=== PATIENT | female | born 1945 ===

== ENCOUNTER 2016-12-08 11:31 | Emergency (ER) | payer MEDICARE ==
[2016-12-08 12:06] VITALS: BMI 28.7
[2016-12-08 12:43] VITALS: TEMP 97.5
--- NOTE | 2016-12-08 12:48 | C.PDOC ---
History Of Present Illness 71 y/o female presents to ED with c/o cyst on her back "for a long time", started draining and increasingly painful over the last few days. Notes she has had similar in 2 other locations in past few years. She states her tried to open the cyst. Patient also reports few weeks of productive cough, initially productive of whitish sputum, now greenish sputum. Denies fevers, chills, SOB, chest pain, or other associated symptoms. Time Seen by Provider: 12/08/16 12:37 Chief Complaint (Nursing): Abnormal Skin Integrity History Per: Patient History/Exam Limitations: no limitations Onset/Duration Of Symptoms: Days Current Symptoms Are (Timing): Still Present Recent travel outside of the [place]: No Past Medical History Reviewed: Historical Data, Nursing Documentation, Vital Signs Vital Signs: Last Vital Signs Temp 97.5 F L 12/08/16 12:42 Pulse 75 12/08/16 14:43 Resp 18 12/08/16 14:43 BP 124/75 12/08/16 14:43 Pulse Ox 99 12/08/16 14:52 - Medical History PMH: Diverticulitis, HTN Surgical History: Appendectomy (2011), Cholecystectomy (2011) - [facility] Procedures OTHER SKIN & SUBQ I D (10/30/14) Family History: States: Unknown Family Hx - Social History Hx Tobacco Use: Yes Hx Alcohol Use: No Hx Substance Use: No - Immunization History Hx Tetanus Toxoid Vaccination: No Hx Influenza Vaccination: No Hx Pneumococcal Vaccination: No Review Of Systems Except As Marked, All Systems Reviewed And Found Negative. Constitutional: Negative for: Fever, Chills Respiratory: Positive for: Cough, Sputum Gastrointestinal: Negative for: Nausea, Vomiting Skin: Positive for: Other (draining cyst upper back ). Negative for: Rash Neurological: Negative for: Weakness, Numbness Physical Exam - Physical Exam Appears: Non-toxic, No Acute Distress Skin: Warm, Dry Chest: Symmetrical Back: Other (1.0 cm draining sebacious cyst, mid upper back) Extremity: Normal ROM Neurological/Psych: Oriented x3, Normal Speech, Normal Cognition ED Course And Treatment O2 Sat by Pulse Oximetry: 99 (RA) Pulse Ox Interpretation: Normal Disposition Counseled Patient/Family Regarding: Need For Followup - Disposition Referrals: Rosa Isela Alfaro MD [Medical Doctor] - Disposition: HOME/ ROUTINE Disposition Time: 12:46 Condition: GOOD Additional Instructions: Wash daily soap and water Prescriptions: Benzonatate [Tessalon Perles] 1 sgl PO BID PRN #20 sgl PRN Reason: Cough Instructions: Abscess (ED) - Clinical Impression Clinical Impression: Sebaceous cyst - Scribe Statement The provider has reviewed the documentation as recorded by the Marty Smith Provider Attestation: All medical record entries made by the Marty were at my direction and personally dictated by me. I have reviewed the chart and agree that the record accurately reflects my personal performance of the history, physical exam, medical decision making, and the department course for this patient. I have also personally directed, reviewed, and agree with the discharge instructions and disposition.
[2016-12-08] MEDS ORDERED: Lidocaine 2% Inj (20ml) INFIL ONE (13:38)
[2016-12-08] MEDS ORDERED: Lidocaine 2% Inj (20ml) ONE (13:49)
[2016-12-08] MEDS ORDERED: Bacitracin 500 Units/gm Oint Foilpak UD ONE (14:06)
[2016-12-08] MEDS ORDERED: Bacitracin Ointment 30 GM TUBE TOP SCH (14:09)
[2016-12-08 14:45] VITALS: BP 124/75; PULSE 75; RESP 18
[2016-12-08 14:51] VITALS: O2SAT 99
== END 2016-12-08 14:44 | disposition home or self-care (01) ==
LOC: C.ER 11:31
DX: L72.3 Sebaceous cyst (principal)

== ENCOUNTER 2017-01-27 11:03 | Emergency (ER) | payer MEDICARE ==
[2017-01-27 11:03] VITALS: BMI 28.7
[2017-01-27 11:07] VITALS: TEMP 98.4; O2SAT 96
[2017-01-27] MEDS ORDERED: Lidocaine 1% Inj (20ml) INFIL ONE (11:15)
[2017-01-27] MEDS ORDERED: Lidocaine 1% Inj (20ml) ONE (11:17)
--- NOTE | 2017-01-27 11:21 | C.PDOC ---
History Of Present Illness 71 y/o female presents to the ED with complaint of abscess to upper back x1.5 weeks. Pt denies fever, chills or any other complaints. No history of diabetes. pt has had similar abscesses. Time Seen by Provider: 01/27/17 11:10 Chief Complaint (Nursing): Abnormal Skin Integrity History Per: Patient History/Exam Limitations: no limitations Onset/Duration Of Symptoms: Days (10) Current Symptoms Are (Timing): Worse Location Of Injury: Posterior: Back (upper mid back) Quality Of Symptoms: Painful Severity: Moderate Recent travel outside of the [place]: No Past Medical History Reviewed: Historical Data, Nursing Documentation, Vital Signs Vital Signs: Last Vital Signs Temp 98.4 F 01/27/17 11:06 Pulse 71 01/27/17 11:49 Resp 18 01/27/17 11:49 BP 114/79 01/27/17 11:49 Pulse Ox 96 01/27/17 22:36 - Medical History PMH: Diverticulitis, HTN Surgical History: Appendectomy (2011), Cholecystectomy (2011) - [facility] Procedures OTHER SKIN & SUBQ I D (10/30/14) Family History: States: Unknown Family Hx - Social History Hx Tobacco Use: Yes Hx Alcohol Use: No Hx Substance Use: No - Immunization History Hx Tetanus Toxoid Vaccination: No Hx Influenza Vaccination: No Hx Pneumococcal Vaccination: No Review Of Systems Constitutional: Negative for: Fever, Chills Skin: Positive for: Other (1.5 cm swollen area to middle uppper back, black puntate fredi, with fluctuance above, sourrounding erythema) Physical Exam - Physical Exam Appears: Non-toxic, No Acute Distress Skin: Warm, Dry, No Rash, Other (1.5 cm swollen area with punctate black fredi, with surrounding erythema, mild warmth and fluctuance) Head: Atraumatic, Normacephalic Extremity: Normal ROM Extremity: Bilateral: Atraumatic Neurological/Psych: Oriented x3, Normal Speech, Normal Cognition ED Course And Treatment O2 Sat by Pulse Oximetry: 96 (room air) Pulse Ox Interpretation: Normal - Incision & Drainage Of Abscess Anesthesia: Lidocaine 1% Prep Used: Betadine Procedure: Incised W/Scalpel Blade#: (11), Drained Pus (mostly thick cottage cheese like discharge, mild remaining induration), Irrigated Cavity W/Saline Disposition Counseled Patient/Family Regarding: Diagnosis, Need For Followup - Disposition Referrals: Steve Gallagher MD [Non-Staff] - Disposition: HOME/ ROUTINE Disposition Time: 11:42 Condition: IMPROVED Additional Instructions: Aplique compresas calientes al barak varias veces al da; Nina era un quiste infectado; Usted tendr que ser visto por un dermatlogo. Seguimiento con el Dr. Friedman para obtener toribio remisin de dermatologa. Catarina antibiticos segn lo prescrito. Tylenol 650 mg por va oral cada 4-6 horas para el dolor. Regrese a ER para cualquier empeoramiento de los sntomas. Prescriptions: Bacitracin OINT 1 applic TP BID #1 tube Sulfamethoxazole/Trimethoprim [Bactrim DS 800 mg-160 mg] 1 tab PO BID #14 tab Instructions: Cyst (ED) Forms: Gen Discharge Inst Ukrainian Print Language: AFGHAN - Clinical Impression Clinical Impression: Infected cyst of skin - PA / [employer] / Resident Statement MD/DO has reviewed & agrees with the documentation as recorded. - Scribe Statement The provider has reviewed the documentation as recorded by the Marty Fraga All medical record entries made by the Scribe were at my direction and personally dictated by me. I have reviewed the chart and agree that the record accurately reflects my personal performance of the history, physical exam, medical decision making, and the department course for this patient. I have also personally directed, reviewed, and agree with the discharge instructions and disposition.
[2017-01-27 11:49] VITALS: BP 114/79; PULSE 71; RESP 18
== END 2017-01-27 11:52 | disposition home or self-care (01) ==
LOC: C.ER 11:03
DX: L08.9 Local infection of the skin and subcutaneous tissue, unspecified (principal)

== ENCOUNTER 2017-03-08 15:35 | Emergency (ER) | payer MEDICARE ==
[2017-03-08 15:35] VITALS: BMI 28.7
[2017-03-08] MEDS ORDERED: Albuterol-Ipratrop 3 mg / 0.5 (3 ml) UD INH STA ×2 (16:48→18:35)
--- NOTE | 2017-03-08 17:06 | RAD ---
PROCEDURE: CHEST RADIOGRAPH, 1 VIEW HISTORY: SOB COMPARISON: Comparison made with chest radiograph 10/13/2016. FINDINGS: LUNGS: Suspect minor right apical pleural thickening. Lung schreiber are otherwise clear. PLEURA: No pneumothorax or pleural fluid seen. CARDIOVASCULAR: Normal. OSSEOUS STRUCTURES: Minor multilevel degenerative spondylosis of the thoracic spine. . Apparent widening of the left acromioclavicular joint. Clinical correlation recommended. Radiographs of the left clavicle could be performed further evaluation VISUALIZED UPPER ABDOMEN: Normal. OTHER FINDINGS: None. IMPRESSION: No acute consolidation. Apparent widening left acromioclavicular joint of uncertain etiology. Radiographs of the left clavicle could be performed for further evaluation if clinically warranted.
[2017-03-08] MEDS ORDERED: Albuterol-Ipratrop 3 mg / 0.5 (3 ml) UD ONE ×2 (17:22→18:44)
[2017-03-08 17:27] LABS: BASO # 0.1 K/uL (0.0-0.2); EOS # 0.7 K/uL (0.0-0.7); EOS % 8.2 % (0.0-4.0); HEMATOCRIT 40.7 % (34.0-47.0); LYMPH # 2.9 K/uL (1.0-4.3); LYMPH % 34.1 % (20.0-40.0); MEAN CORPUSCULAR HEMOGLOBIN 29.2 pg (27.0-31.0); MEAN CORPUSCULAR HGB CONC 33.2 g/dL (33.0-37.0); MEAN PLATELET VOLUME 8.1 fL (7.2-11.7); MONO # 0.7 K/uL (0.0-0.8); MONO % 7.6 % (0.0-10.0); NRBC % 0.1 % (0.0-2.0); RED CELL DISTRIBUTION WIDTH 14.2 % (11.5-14.5); WHITE BLOOD COUNT 8.6 K/uL (4.8-10.8)
[2017-03-08 17:36] LABS: CHLORIDE 103 mmol/L (98-107); SODIUM 138 mmol/L (132-148)
[2017-03-08 17:37] LABS: POTASSIUM 4.3 mmol/L (3.6-5.2)
[2017-03-08 17:39] LABS: ALB/GLOB RATIO 1.2 (1.0-2.1); ALKALINE PHOSPHATASE 73 U/L (38-126); ALT/SGPT 28 U/L (9-52); AST/SGOT 23 U/L (14-36); BILIRUBIN,TOTAL 0.5 mg/dL (0.2-1.3); BLOOD UREA NITROGEN 11 mg/dL (7-17); CARBON DIOXIDE 25 mmol/L (22-30); GFR AFRICAN-AMERICAN > 60; GLUCOSE,RANDOM 93 mg/dL (65-105); TOTAL PROTEIN 7.3 g/dL (6.3-8.3)
[2017-03-08 17:40] LABS: CALCIUM 8.9 mg/dl (8.6-10.4)
[2017-03-08 17:51] LABS: PARTIAL THROMBOPLASTIN TIME 33 SECONDS (21-34)
--- NOTE | 2017-03-08 18:26 | C.PDOC ---
History Of Present Illness A 72 year old female, whose past medical history includes hypertension and diverticulitis, presents to the emergency department for a dry no -productive cough, which began 2 weeks ago. The patient states she took tessalon perles and didn't see any improvements. The patient denies any fever, headaches, chest pain , or any other complaints at this time. Time Seen by Provider: 03/08/17 16:40 Chief Complaint (Nursing): Cough, Cold, Congestion History Per: Patient History/Exam Limitations: no limitations Onset/Duration Of Symptoms: Days (x 14 days ) Current Symptoms Are (Timing): Still Present Associated Symptoms: denies: Fever Past Medical History Vital Signs: Last Vital Signs Temp 98.3 F 03/08/17 15:49 Pulse 82 03/08/17 15:49 Resp 18 03/08/17 15:49 BP 113/70 03/08/17 15:49 Pulse Ox 98 03/08/17 18:35 - Medical History PMH: Diverticulitis, HTN Surgical History: Appendectomy (2011), Back Surgery, Cholecystectomy (2011) - [facility] Procedures OTHER SKIN & SUBQ I D (10/30/14) Family History: States: Unknown Family Hx - Social History Hx Tobacco Use: Yes Hx Alcohol Use: No Hx Substance Use: No - Immunization History Hx Tetanus Toxoid Vaccination: No Hx Influenza Vaccination: No Hx Pneumococcal Vaccination: No Review Of Systems Except As Marked, All Systems Reviewed And Found Negative. Constitutional: Negative for: Fever Cardiovascular: Negative for: Chest Pain Neurological: Negative for: Headache Physical Exam - Physical Exam Appears: Well, No Acute Distress Skin: Normal Color, Warm, Dry Head: Atraumatic, Normacephalic Eye(s): bilateral: Normal Inspection, PERRL, EOMI Nose: Normal Throat: Normal Neck: Normal Cardiovascular: Rhythm Regular Respiratory: Normal Breath Sounds Gastrointestinal/Abdominal: Normal Exam Back: Normal Inspection Extremity: Normal ROM ED Course And Treatment - Laboratory Results Result Diagrams: 03/08/17 17:20 03/08/17 17:20 Lab Interpretation: Normal (d-dimer neg.) ECG: Interpreted By Me ECG Rhythm: Sinus Rhythm ECG Interpretation: Normal Rate From EC O2 Sat by Pulse Oximetry: 98 Pulse Ox Interpretation: Normal - Radiology CXR: Interpreted by Me CXR Interpretation: Yes: No Acute Disease Progress Note: maame guy Reevaluation Time: 18:25 Reassessment Condition: Improved Critical Care Time - Critical Care Note Total Time (in mins): 90 Documented critical care: time excludes all time spent performing seperately billable procedures. Medical Decision Making Medical Decision Making: Plan: -- EKG -- Albuterol, Pepcid, prednisone -- Nebulizer -- Urinalysis Progress Notes: mild bronchial irritation/dry cough no pna/pnx, no s/s of PE improved with steroids/nebs, ok for same @ home. Disposition Doctor Will See Patient In The: Office Counseled Patient/Family Regarding: Studies Performed, Diagnosis - Disposition Referrals: Steve Gallagher MD [Non-Staff] - Disposition: HOME/ ROUTINE Disposition Time: 18:25 Condition: GOOD Additional Instructions: feli predisona 20 diarios por 4 chavez mas- para bajer inflammacion' de los bronchios. Albuterol bomba: 2 puffs cada 4 horas mio el kaela. Y si se despierta en la noche. Siempre usa con el Aerochamber Spacer (tubo plastico) para que funccion'a mejor la bomba Pepcid 20 mg en la noche para prevenir irritacion' del estomago debido al prednisona. Sigue con Dr. Friedman en 2 chavez para re-evaluarse olga necessario. Prescriptions: Albuterol HFA [Ventolin HFA 90 mcg/actuation (8 g)] 200 puff IH Q4H PRN #2 puff PRN Reason: Cough Prednisone [Deltasone] 20 mg PO DAILY #4 tablet Spacer, Inhalation [Aerochamber] 1 inh IH QID #1 dev Instructions: Chronic Cough (ED) Forms: [employer] (Northern Irish) Print Language: FILIPINO - Clinical Impression Clinical Impression: Cough in adult - Scribe Statement The provider has reviewed the documentation as recorded by the Scribe Renetta Bunch All medical record entries made by the Scribe were at my direction and personally dictated by me. I have reviewed the chart and agree that the record accurately reflects my personal performance of the history, physical exam, medical decision making, and the department course for this patient. I have also personally directed, reviewed, and agree with the discharge instructions and disposition.
[2017-03-08 19:33] VITALS: BP 146/74; PULSE 82; RESP 18; TEMP 98.2; O2SAT 98
--- NOTE | 2017-03-10 11:44 | CARD ---
APPROVED REPORT EKG Measurement Heart [id number] <Conclusion> Normal sinus rhythm Normal ECG
== END 2017-03-08 19:29 | disposition home or self-care (01) ==
LOC: C.ER 15:35
DX: R05 Cough (principal); I10 Essential (primary) hypertension
CPT/HCPCS: 71010; 80053; 83880; 84484; 85025; 85378; 85610; 85730; 87040; 93005; 94150; 94640; 96374; 99285; J2930

== ENCOUNTER 2017-10-12 10:28 | Emergency (ER) | payer MEDICARE ==
[2017-10-12 10:28] VITALS: BMI 28.7
[2017-10-12 10:46] VITALS: BP 138/70; PULSE 82; RESP 18; TEMP 98.4; O2SAT 97
--- NOTE | 2017-10-12 11:52 | C.PDOC ---
Time Seen by Provider: 10/12/17 10:54 Chief Complaint (Nursing): Cough, Cold, Congestion History Per: Patient Onset/Duration Of Symptoms: Days (about 1 week) Current Symptoms Are (Timing): Still Present Associated Symptoms: Sore Throat, Cough, Sputum, Myalgias, Nasal Congestion Severity: Moderate Additional History Per: Prior Records Past Medical History Reviewed: Historical Data, Nursing Documentation, Vital Signs Vital Signs: Last Vital Signs Temp 98.4 F 10/12/17 10:44 Pulse 82 10/12/17 10:44 Resp 18 10/12/17 10:44 BP 138/70 10/12/17 10:44 Pulse Ox 97 10/12/17 10:44 - Medical History PMH: Diverticulitis, HTN Surgical History: Appendectomy (2011), Back Surgery, Cholecystectomy (2011) - [facility] Procedures OTHER SKIN & SUBQ I D (10/30/14) Family History: States: Unknown Family Hx - Social History Hx Tobacco Use: Yes Hx Alcohol Use: No Hx Substance Use: No - Immunization History Hx Tetanus Toxoid Vaccination: No Hx Influenza Vaccination: No Hx Pneumococcal Vaccination: No Review Of Systems Except As Marked, All Systems Reviewed And Found Negative. Constitutional: Positive for: Fever (subjective) ENT: Positive for: Nose Congestion, Throat Pain. Negative for: Ear Pain Cardiovascular: Negative for: Chest Pain Respiratory: Positive for: Cough, Sputum. Negative for: Shortness of Breath, Hemoptysis Gastrointestinal: Negative for: Vomiting, Abdominal Pain, Diarrhea Genitourinary: Negative for: Dysuria Musculoskeletal: Negative for: Neck Pain, Back Pain Skin: Negative for: Rash Neurological: Negative for: Weakness, Numbness, Seizures, Altered Mental Status Physical Exam - Physical Exam Appears: Non-toxic, No Acute Distress Skin: Normal Color, Warm, Dry, No Rash Head: Atraumatic, Normacephalic Eye(s): bilateral: Normal Inspection, PERRL, EOMI Neck: Normal ROM, Supple Cardiovascular: Rhythm Regular Respiratory: Normal Breath Sounds, No Accessory Muscle Use Gastrointestinal/Abdominal: Soft, No Tenderness Back: No CVA Tenderness Extremity: Normal ROM, No Pedal Edema Neurological/Psych: Oriented x3, Normal Motor, Normal Sensation ED Course And Treatment O2 Sat by Pulse Oximetry: 97 Pulse Ox Interpretation: Normal - Radiology CXR: Interpreted by Me, Viewed By Me CXR Interpretation: Yes: No Acute Disease Disposition Counseled Patient/Family Regarding: Studies Performed, Diagnosis, Need For Followup, Rx Given, Smoking Cessation - Disposition Referrals: Steve Gallagher MD [Non-Staff] - Disposition: HOME/ ROUTINE Disposition Time: 11:51 Condition: STABLE Additional Instructions: Stop smoking. Follow up with your doctor this week for further evaluation and treatment. Return to the ER if you develop shortness of breath, chest pain, worsening of symptoms or if you have any other concerns. Prescriptions: Acetaminophen [Tylenol Extra Strength] 2 tab PO Q6 PRN #30 tablet PRN Reason: Pain, Moderate (4-7) Azithromycin [Zithromax] 1 dose PO DAILY #1 pkt Benzonatate 200 mg PO TID PRN #15 capsule PRN Reason: Cough Instructions: Acute Bronchitis, Adult (DC) Forms: [employer] (Croatian) Print Language: PORTUGUESE - Clinical Impression Clinical Impression: Acute bronchitis
--- NOTE | 2017-10-12 12:03 | RAD ---
HISTORY: Cough COMPARISON: 03/08/2017 TECHNIQUE: Chest PA and lateral FINDINGS: LUNGS: No active pulmonary disease. PLEURA: No significant pleural effusion identified. No pneumothorax apparent. CARDIOVASCULAR: Normal. OSSEOUS STRUCTURES: No significant abnormalities. VISUALIZED UPPER ABDOMEN: Normal. OTHER FINDINGS: None. IMPRESSION: No active disease. No significant interval change compared to the prior examination(s).
== END 2017-10-12 11:59 | disposition home or self-care (01) ==
LOC: C.ER 10:28
DX: J20.9 Acute bronchitis, unspecified (principal)

== ENCOUNTER 2018-01-05 21:44 | Emergency (ER) | payer MEDICARE ==
[2018-01-05 21:44] VITALS: BMI 28.7
[2018-01-05 21:56] VITALS: O2SAT 98
--- NOTE | 2018-01-05 23:30 | C.PDOC ---
History Of Present Illness 72 y/o female presents to the ED complaining of nasal congestion, body aches, subjective fever, and cough, since yesterday. Reports taking Tylenol at home with minimal relief. Otherwise patient denies any chest pain, SOB, nausea, vomiting, headache, or dizziness. States she had a similar episode of the same symptoms last year, and was treated for bronchitis at that time. (Zoila Pierce) History Per: Patient History/Exam Limitations: no limitations Onset/Duration Of Symptoms: Days Current Symptoms Are (Timing): Still Present Time Seen by Provider: 01/05/18 22:03 Chief Complaint (Nursing): Cough, Cold, Congestion Past Medical History Reviewed: Historical Data, Nursing Documentation, Vital Signs - Medical History PMH: Diverticulitis, HTN, Hypercholesterolemia Surgical History: Appendectomy (2011), Back Surgery, Cholecystectomy (2011) Family History: States: Unknown Family Hx - Social History Hx Tobacco Use: Yes Hx Alcohol Use: No Hx Substance Use: No - Immunization History Hx Tetanus Toxoid Vaccination: No Hx Influenza Vaccination: No Hx Pneumococcal Vaccination: No Vital Signs: Last Vital Signs Temp 98.1 F 01/05/18 23:37 Pulse 70 01/05/18 23:37 Resp 16 01/05/18 23:37 BP 135/79 01/05/18 23:37 Pulse Ox 98 01/06/18 00:27 - [facility] Procedures OTHER SKIN & SUBQ I D (10/30/14) Review Of Systems Constitutional: Positive for: Fever, Other (bodyaches) ENT: Positive for: Nose Congestion Cardiovascular: Negative for: Chest Pain Respiratory: Positive for: Cough. Negative for: Shortness of Breath Gastrointestinal: Negative for: Nausea, Vomiting Neurological: Negative for: Headache, Dizziness Physical Exam - Physical Exam Appears: Well, Non-toxic, No Acute Distress Skin: Normal Color, Warm, Dry Head: Atraumatic, Normacephalic Eye(s): bilateral: Normal Inspection, EOMI Nose: Discharge (Nasal congestion noted) Oral Mucosa: Moist Neck: Normal ROM, Supple Chest: Symmetrical Cardiovascular: Rhythm Regular, No Murmur Respiratory: Normal Breath Sounds, No Rales, No Rhonchi, No Wheezing, Other ( speaking in full sentences) Extremity: Bilateral: Atraumatic, Normal Color And Temperature, Normal ROM Neurological/Psych: Oriented x3, Normal Speech, Other (No focal deficits) ED Course And Treatment O2 Sat by Pulse Oximetry: 98 (RA) Pulse Ox Interpretation: Normal - Radiology CXR: Interpreted by Me (and discussed with ED attending) CXR Interpretation: Yes: No Acute Disease. No: Infiltrates Progress Note: CXR obtained, showing no acute disease. Patient treated with PO Motrin and Zithromax. Flu swab sent. Labs reviewed, negative flu. On reevaluation is resting comfortably, tolerating PO, and remains afebrile at this time. Clinical signs and symptoms are not suggestive of sepsis, meningitis , UTI, pneumonia, intra-abdominal pathology, or cellulitis. Case discussed with Dr. Yang, who agrees with management and plan to discharge home on zithro. Patient will be discharged home, and instructed to follow up with his/ her physician in 1-2 days without fail. Prescriptions provided for Zithromax and cough medication. Patient was instructed to return for any worsening symptoms, persistent fever, neck pain, SOB, abdominal pain, or vomiting. Disposition Counseled Patient/Family Regarding: Studies Performed, Diagnosis, Need For Followup, Rx Given - Disposition Disposition Time: 23:23 - POA Present On Arrival: None - Disposition Disposition: HOME/ ROUTINE Condition: STABLE Additional Instructions: Vaya a burk mdico o la clnica en 2-5 rodriguez sin falta, para mas evaluacin. [place] los medicamentos olga indicado. Volver a la bismark de emergencia en cualquier momento si los sntomas persisten o empeoran. 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 - Scribe Statement The provider has reviewed the documentation as recorded by the Scribe (Salina Paiz) - Scribe Statement All medical record entries made by the Scribe were at my direction and personally dictated by me. I have reviewed the chart and agree that the record accurately reflects my personal performance of the history, physical exam, medical decision making, and the department course for this patient. I have also personally directed, reviewed, and agree with the discharge instructions and disposition. (Zoila Pierce)
[2018-01-05 23:39] VITALS: BP 135/79; PULSE 70; RESP 16; TEMP 98.1
--- NOTE | 2018-01-06 11:37 | RAD ---
HISTORY: COMPARISON: 10/12/2017. TECHNIQUE: Chest PA and lateral FINDINGS: LINES AND TUBES: None. LUNG AND PLEURA: The lungs are well inflated and clear. No pleural effusion or pneumothorax. HEART AND MEDIASTINUM: The heart is not enlarged. The hilar and mediastinal contours are within normal limits. SKELETAL STRUCTURES: The bony structures are within normal limits for the patient's age. VISUALIZED UPPER ABDOMEN: Normal. OTHER FINDINGS: None. IMPRESSION: No active pulmonary disease.
== END 2018-01-05 23:45 | disposition home or self-care (01) ==
LOC: C.ER 21:44
DX: B34.9 Viral infection, unspecified (principal)

== ENCOUNTER 2018-01-18 08:07 | Inpatient (IN) | payer MEDICARE ==
[2018-01-18 08:08] VITALS: BMI 28.7
[2018-01-18 09:33] LABS: BASO # 0.1 K/uL (0.0-0.2); BASO % 0.5 % (0.0-2.0); EOS # 0.4 K/uL (0.0-0.7); EOS % 2.4 % (0.0-4.0); HEMOGLOBIN 13.3 g/dL (11.0-16.0); LYMPH # 1.4 K/uL (1.0-4.3); MEAN CELL VOLUME 86.9 fL (81.0-99.0); MEAN CORPUSCULAR HEMOGLOBIN 29.1 pg (27.0-31.0); MEAN CORPUSCULAR HGB CONC 33.5 g/dL (33.0-37.0); MEAN PLATELET VOLUME 7.5 fL (7.2-11.7); MONO # 1.3 K/uL (0.0-0.8); MONO % 9.2 % (0.0-10.0); NEUT # 11.3 K/uL (1.8-7.0); NEUT % 77.9 % (50.0-75.0); NRBC % 0.1 % (0.0-2.0); RBC 4.57 Mil/uL (3.80-5.20); RED CELL DISTRIBUTION WIDTH 13.5 % (11.5-14.5)
[2018-01-18 09:37] LABS: WHITE BLOOD COUNT 14.5 K/uL (4.8-10.8)
[2018-01-18 09:55] LABS: ALB/GLOB RATIO 1.3 (1.0-2.1); ALBUMIN 4.2 g/dL (3.5-5.0); ALT/SGPT 27 U/L (9-52); AST/SGOT 20 U/L (14-36); BLOOD UREA NITROGEN 8 mg/dL (7-17); CALCIUM 8.9 mg/dl (8.6-10.4); GFR AFRICAN-AMERICAN > 60; GFR NON-AFRICAN AMERICAN > 60
[2018-01-18 10:06] LABS: B-TYPE NATRIURETIC PEPTIDE 134 pg/mL (0-900)
--- NOTE | 2018-01-18 10:12 | RAD ---
Date of service: 01/18/2018 HISTORY: chest pain COMPARISON: Chest radiograph dated 01/05/2018 TECHNIQUE: Chest PA and lateral FINDINGS: LUNGS: No active pulmonary disease. PLEURA: No significant pleural effusion identified. No pneumothorax apparent. CARDIOVASCULAR: Sclerotic aortic calcifications. Cardiomediastinal silhouette within normal. OSSEOUS STRUCTURES: Unchanged. VISUALIZED UPPER ABDOMEN: Normal. OTHER FINDINGS: None. IMPRESSION: No active disease.
--- NOTE | 2018-01-18 11:04 | C.PDOC ---
History Of Present Illness 72-year-old female, presents to the emergency department with complaints of one day duration of body aches, associated with productive cough with clear phlegm. Patient denies nausea/vomiting, diarrhea, urinary symptoms. Patient is not taking any medications for symptoms. Time Seen by Provider: 01/18/18 08:33 Chief Complaint (Nursing): Fever History Per: Patient History/Exam Limitations: no limitations Current Symptoms Are (Timing): Still Present Past Medical History Reviewed: Historical Data, Nursing Documentation, Vital Signs Vital Signs: Last Vital Signs Temp 98.3 F 01/18/18 12:01 Pulse 84 01/18/18 12:01 Resp 18 01/18/18 12:01 BP 120/79 01/18/18 12:01 Pulse Ox 97 01/18/18 12:01 - Medical History PMH: Diverticulitis, HTN, Hypercholesterolemia Surgical History: Appendectomy, Back Surgery, Cholecystectomy - [facility] Procedures OTHER SKIN & SUBQ I D (10/30/14) Family History: States: No Known Family Hx - Social History Hx Tobacco Use: Yes Hx Alcohol Use: No Hx Substance Use: No - Immunization History Hx Tetanus Toxoid Vaccination: No Hx Influenza Vaccination: No Hx Pneumococcal Vaccination: No Review Of Systems Constitutional: Positive for: Fever, Malaise ENT: Negative for: Ear Pain, Throat Pain Cardiovascular: Negative for: Chest Pain, Palpitations Respiratory: Positive for: Cough, Sputum. Negative for: Shortness of Breath Gastrointestinal: Negative for: Nausea, Vomiting Musculoskeletal: Negative for: Back Pain Skin: Negative for: Rash Neurological: Negative for: Weakness, Numbness, Headache, Dizziness Physical Exam - Physical Exam Appears: Non-toxic, No Acute Distress Skin: Normal Color, Warm, Dry, No Rash Head: Atraumatic, Normacephalic Eye(s): bilateral: Normal Inspection Nose: Normal Oral Mucosa: Moist Lips: Normal Appearing Neck: Normal ROM Chest: Symmetrical Cardiovascular: Rhythm Regular, No Murmur Respiratory: Normal Breath Sounds, No Accessory Muscle Use, No Wheezing Gastrointestinal/Abdominal: Soft, No Tenderness Extremity: Normal ROM, No Deformity, No Swelling Neurological/Psych: Oriented x3, Normal Speech ED Course And Treatment - Laboratory Results Result Diagrams: 01/18/18 09:24 01/18/18 09:24 ECG: Interpreted By Me, Viewed By Me ECG Rhythm: Sinus Rhythm ECG Interpretation: No Acute Changes Rate From EC O2 Sat by Pulse Oximetry: 97 (RA) Pulse Ox Interpretation: Normal Medical Decision Making Medical Decision Making: discussed with oncall physician and will admit to medical surgical floor. Disposition Discussed With : Michael Cervnates Doctor Will See Patient In The: Hospital Counseled Patient/Family Regarding: Studies Performed, Diagnosis - Disposition Disposition: HOSPITALIZED Disposition Time: 12:07 Condition: FAIR Forms: [facility] (Dominican) - Clinical Impression Clinical Impression: Pyelonephritis - Scribe Statement The provider has reviewed the documentation as recorded by the Scribe (Panfilo Sutton) All medical record entries made by the Scribe were at my direction and personally dictated by me. I have reviewed the chart and agree that the record accurately reflects my personal performance of the history, physical exam, medical decision making, and the department course for this patient. I have also personally directed, reviewed, and agree with the discharge instructions and disposition.
[2018-01-18 11:09] LABS: SQUAMOUS EPITHIAL 4 /hpf (0-5); URINE BACTERIA MOD (<OCC); URINE BILIRUBIN NEGATIVE (NEGATIVE); URINE BLOOD 2+ (NEGATIVE); URINE CLARITY Hazy (Clear); URINE COLOR Yellow (YELLOW); URINE GLUCOSE (UA) NORMAL (Normal); URINE LEUKOCYTE ESTERASE 3+ Leu/uL (Negative); URINE PROTEIN 1+ mg/dL (NEGATIVE); URINE UROBILINOGEN NORMAL mg/dL (0.2-1.0)
[2018-01-18] MEDS ORDERED: cefTRIAXone IV 1 gm in Dextros 50 ML IVPB ONE (11:36)
[2018-01-18] MEDS: Sodium Chloride 0.9% 1,000 ML IV SCH (15:35)
--- NOTE | 2018-01-18 15:59 | CP.PCM.PN ---
Subjective - Date & Time of Evaluation Date of Evaluation: 01/18/18 Time of Evaluation: 15:35 - Subjective Subjective: Paged to check on patient admitted for pyleonephritis. Pt vitals accessed at Temp 102.8F, HR 119, BP 132/64 O2 Sat 96%. Pt A&O X3 and stated she was cold. Denied chest pain & difficulty breathing. PT had blood cultures and urine cultures obtained in ED. Pt given Rocephin for antimicrobial coverage. Reviewed chart & stat tylenol 650 mg PO once ordered, with Ice packs via direct communication with nurse. Disccused with attending & nurse and informed nurse to call pt admitting provider for further instructions. Objective - Vital Signs/Intake and Output Vital Signs (last 24 hours): Temp Pulse Resp BP Pulse Ox 102.8 F H 90 22 120/72 98 01/18/18 15:29 01/18/18 14:50 01/18/18 14:50 01/18/18 14:50 01/18/18 14:30 - Medications Medications: Current Medications Sodium Chloride (Sodium Chloride 0.9%) 1,000 mls @ 100 mls/hr IV .Q10H QUE Ceftriaxone Sodium 1 gm/ (Sodium Chloride) 100 mls @ 100 mls/hr IVPB DAILY QUE PRN Reason: Protocol Losartan Potassium (Cozaar) 100 mg PO DAILY [facility] Rosuvastatin Calcium (Crestor) 20 mg PO HS QUE - Labs Labs: 01/18/18 09:24 01/18/18 09:24
--- NOTE | 2018-01-18 17:36 | US ---
Date of service: 01/18/2018 PROCEDURE: Ultrasound of the Kidneys HISTORY: r/o pyelonephritis COMPARISON: Correlations made CT scan of the abdomen pelvis dated 05/19/2015. TECHNIQUE: Sonogram of the kidneys. FINDINGS: RIGHT KIDNEY: Measures: 9.9 x 3.8 x 5.0 cm. Nonobstructive midpole calculus measuring 4 mm. Normal in size, contour and echogenicity. No solid mass lesion or hydronephrosis visualized. LEFT KIDNEY: Measures: 10.8 x 5.1 x 4.9 cm. Nonobstructive calculus measuring 4 mm. Normal in size, contour and echogenicity. No solid mass lesion or hydronephrosis visualized. OTHER FINDINGS: Prevoid urinary bladder volume measures 222.2 cc. No significant postvoid residual. Left ureteral jet visualized. Right ureteral jet not seen. IMPRESSION: Bilateral nonobstructive nephrolithiasis. No significant postvoid residual volume.
[2018-01-18] MEDS ORDERED: Oxycodone/Acetaminophen 5/325 mg Tab PO ONE (18:30)
--- NOTE | 2018-01-18 19:59 | CP.PCM.PN ---
Subjective - Date & Time of Evaluation Date of Evaluation: 01/18/18 Time of Evaluation: 19:30 - Subjective Subjective: Patient is seen and examined at bedside. H&P dictated #[id number] Objective - Vital Signs/Intake and Output Vital Signs (last 24 hours): Temp Pulse Resp BP Pulse Ox 102.8 F H 102 H 20 132/64 96 01/18/18 15:29 01/18/18 15:25 01/18/18 15:25 01/18/18 15:25 01/18/18 15:25 - Medications Medications: Current Medications Acetaminophen (Tylenol 325mg Tab) 650 mg PO Q6 PRN PRN Reason: Fever >100.4 F Sodium Chloride (Sodium Chloride 0.9%) 1,000 mls @ 100 mls/hr IV .Q10H [facility] Last Admin: 01/18/18 15:35 Dose: 100 mls/hr Ceftriaxone Sodium 1 gm/ (Sodium Chloride) 100 mls @ 100 mls/hr IVPB DAILY QUE PRN Reason: Protocol Losartan Potassium (Cozaar) 100 mg PO DAILY QUE Pneumococcal Polyvalent Vaccine (Pneumovax 23 Vaccine) 0.5 ml IM .ONCE ONE Stop: 01/20/18 10:01 Rosuvastatin Calcium (Crestor) 20 mg PO HS QUE - Labs Labs: 01/18/18 09:24 01/18/18 09:24
[2018-01-19 07:49] LABS: BASO # 0.1 K/uL (0.0-0.2); BASO % 0.4 % (0.0-2.0); EOS # 0.2 K/uL (0.0-0.7); HEMOGLOBIN 12.7 g/dL (11.0-16.0); LYMPH # 1.9 K/uL (1.0-4.3); LYMPH % 11.7 % (20.0-40.0); MEAN CELL VOLUME 87.5 fL (81.0-99.0); MEAN CORPUSCULAR HGB CONC 34.3 g/dL (33.0-37.0); MONO # 1.5 K/uL (0.0-0.8); MONO % 9.4 % (0.0-10.0); NEUT # 12.6 K/uL (1.8-7.0); NEUT % 77.5 % (50.0-75.0); RBC 4.24 Mil/uL (3.80-5.20); RED CELL DISTRIBUTION WIDTH 13.9 % (11.5-14.5); WHITE BLOOD COUNT 16.2 K/uL (4.8-10.8)
[2018-01-19 08:00] LABS: ALB/GLOB RATIO 1.2 (1.0-2.1); ALBUMIN 3.6 g/dL (3.5-5.0); ALT/SGPT 25 U/L (9-52); AST/SGOT 13 U/L (14-36); BLOOD UREA NITROGEN 8 mg/dL (7-17); CALCIUM 8.2 mg/dl (8.6-10.4); GFR AFRICAN-AMERICAN > 60; GFR NON-AFRICAN AMERICAN > 60; HDL CHOLESTEROL 34 mg/dL (30-70)
[2018-01-19 08:09] LABS: LDL CHOLESTEROL 56 mg/dL (0-129)
[2018-01-19] MEDS: Enoxaparin 40 mg Syringe SC SCH (09:26)
--- NOTE | 2018-01-19 10:11 | CP.PCM.PN ---
Subjective - Date & Time of Evaluation Date of Evaluation: 01/19/18 Time of Evaluation: 09:30 - Subjective Subjective: Progress note dictated #[id number] Objective - Vital Signs/Intake and Output Vital Signs (last 24 hours): Temp Pulse Resp BP Pulse Ox 99.6 F 90 20 121/64 95 01/19/18 07:00 01/19/18 07:00 01/19/18 07:00 01/19/18 07:00 01/19/18 07:00 Intake and Output: 01/19/18 01/19/18 06:59 18:59 Intake Total 1600 Output Total 0 Balance 1600 - Medications Medications: Current Medications Acetaminophen (Tylenol 325mg Tab) 650 mg PO Q6 PRN PRN Reason: Fever >100.4 F Enoxaparin Sodium (Lovenox) 40 mg SC DAILY [facility] Last Admin: 01/19/18 09:26 Dose: 40 mg Sodium Chloride (Sodium Chloride 0.9%) 1,000 mls @ 100 mls/hr IV .Q10H [facility] Last Admin: 01/18/18 15:35 Dose: 100 mls/hr Ceftriaxone Sodium 1 gm/ (Sodium Chloride) 100 mls @ 100 mls/hr IVPB DAILY QUE PRN Reason: Protocol Losartan Potassium (Cozaar) 100 mg PO DAILY [facility] Last Admin: 01/19/18 09:26 Dose: 100 mg Pneumococcal Polyvalent Vaccine (Pneumovax 23 Vaccine) 0.5 ml IM .ONCE ONE Stop: 01/20/18 10:01 Rosuvastatin Calcium (Crestor) 20 mg PO [facility] Last Admin: 01/18/18 21:54 Dose: 20 mg - Labs Labs: 01/19/18 07:30 01/19/18 07:30
--- NOTE | 2018-01-19 10:20 | HP ---
CHIEF COMPLAINT: Fever with chills and rigors, joint pains and generalized body aches since last night. HISTORY OF PRESENT ILLNESS: Ms. Story is a 72-year-old female with past medical history of hypertension, hyperlipidemia, who has been following up with Dr. Alfaro as primary care physician, came into the emergency room with complaints of fever, body aches, chills and rigors and multiple joint pain, progressively getting worse since last night. As per the patient, she was evaluated in the emergency room about two weeks ago with similar symptoms and she was told that she had upper respiratory infection and she was given antibiotics about two weeks ago and sent home from the emergency room. For the past two weeks, she has been having on and off symptoms, fever and body aches, chills, and rigors but last night she had temperature and her symptoms got worse which made her come to the emergency room. When I examined, she denies any headaches, denies any chest pain, shortness of breath, or wheezing. Denies any cold, cough, sore throat, or runny nose but complaining of intermittent dizziness. She claims that her urine is cloudy and foamy. Denies any urgency or frequency. Denies any nausea, vomiting, abdominal pain, diarrhea, or constipation. Denies any other neurologic symptoms. She complains of left leg pain for the past two years status post accident and surgery. All other systems reviewed and was found to be negative. PAST MEDICAL HISTORY: As described, hypertension, hyperlipidemia. PAST SURGICAL HISTORY: Left foot surgery, appendectomy, cholecystectomy, and breast biopsy. FAMILY HISTORY: Family history of diabetes mellitus. Denies any family history of any malignancy. PERSONAL HISTORY: She is , having four children, retired, worked in a [employer], lives with her and son. SOCIAL HISTORY: She denies any alcohol but smokes very rarely. Denies any drug abuse. ALLERGIES: SHE IS ALLERGIC TO ASPIRIN AND CIPROFLOXACIN. HOME MEDICATIONS: Include Lipitor 40 mg p.o. at bedtime, Cozaar 100 mg p.o. daily. REVIEW OF SYSTEMS: As described in history of present illness, all other systems are reviewed and were found to be negative. PHYSICAL EXAMINATION: GENERAL: Elderly female, lying in bed, in no acute distress. VITAL SIGNS: Blood pressure 132/64, pulse 102, respirations 20, temperature 102.8 degrees Fahrenheit, O2 saturation 96% on room air. HEENT: Pupils equal, round, and reacting to light and accommodation. Extraocular muscles intact. No icterus. No pallor. No oral thrush. No pharyngeal congestion. NECK: Supple. No JVD. LUNGS: Bilateral vesicular breath sounds. No wheezing, no rhonchi. CVS: S1, S2 present, regular. ABDOMEN: Soft, nontender. Bowel sounds present. No guarding. No rigidity. No rebound tenderness noted. MANAGER METAL: Alert, awake, and oriented x3. No focal deficits noted. EXTREMITIES: No pedal edema. Palpable peripheral pulses. LABORATORY DATA: Labs done from the ED, WBC 14.5, hemoglobin 13.3, hematocrit 39.7, platelets 275. Sodium 136, potassium 4.1, chloride 102, bicarb 22, BUN 8, creatinine 0.9, glucose 142, lactic acid 1.3, ESR 19, calcium 8.9, total bilirubin 1.0, AST 20, ALT 27, alkaline phosphatase 82. Troponin less than 0.0120, C-reactive protein 86.2, proBNP 134, total protein 7.4, albumin 4.2. Procalcitonin 0.21. UA: Specific gravity 1.011, pH 7.0, protein 1+, blood 2+, nitrate positive, leukocyte esterase 3+, wbc 227. Influenza A and B negative. Urine culture and blood culture sent from the ED. Chest x-ray, no active disease. Ultrasound of the bladder shows bilateral nonobstructing nephrolithiasis. No significant postvoid residual urine. ASSESSMENT: Elderly female with past medical history of hypertension, hyperlipidemia, admitted for two-day history of fever with chills, rigors, generalized body aches, and joint pain; progressively getting worse in the emergency department. The patient was found to be having fever up to 103 and urinalysis consistent with urinary tract infection, and the patient is being admitted for further management. 1. Urinary tract infection with possible sepsis. 2. Hypertension. 3. Hyperlipidemia. PLAN: The patient is being admitted to [facility]. We will give Rocephin 1 gm IV daily pending urine culture results and blood culture results. Continue with her home medications of Crestor 40 mg p.o. at bedtime and Cozaar 100 mg p.o. daily. We will give IV fluids, Tylenol as needed for fever. Repeat labs in a.m. We will give DVT and GI prophylaxis. We will add further recommendations as her clinical course progresses. Michael Cervantes MD
[2018-01-19] MEDS: Sodium Chloride 0.9% 1,000 ML IV SCH ×3 (10:45→21:28)
--- NOTE | 2018-01-19 12:50 | CP.PCM.CON ---
History of Present Illness - History of Present Illness History of Present Illness: 72-year-old female, presents to the emergency department with complaints of one day duration of body aches, associated with productive cough with clear phlegm. Patient denies nausea/vomiting, diarrhea, urinary symptoms. Patient is not taking any medications for symptoms. found to have UTI / pyelo started on IV Rocephin cultures pending - Medical History PMH: Diverticulitis, HTN, Hypercholesterolemia Surgical History: Appendectomy, Back Surgery, Cholecystectomy - [facility] Procedures OTHER SKIN & SUBQ I D (10/30/14) Review of Systems - Review of Systems All systems: reviewed and no additional remarkable complaints except - Constitutional Constitutional: As Per HPI - EENT Eyes: absent: As Per HPI, Blind Spots, Blurred Vision, Change in Vision, Decreased Night Vision, Diplopia, Discharge, Dry Eye, Exophthalmos, Floaters, Irritation, Itchy Eyes, Loss of Peripheral Vision, Pain, Photophobia, Requires Corrective Lenses, Sees Flashes, Spots in Vision, Tunnel Vision, Other Visual Disturbances, Loss of Vision, Other Ears: absent: As Per HPI, Decreased Hearing, Ear Discharge, Ear Pain, Tinnitus, Abnormal Hearing, Disequilibrium, Dizziness, Other Nose/Mouth/Throat: absent: As Per HPI, Epistaxis, Nasal Congestion, Nasal Discharge, Nasal Obstruction, Nasal Trauma, Nose Pain, Post Nasal Drip, Sinus Pain, Sinus Pressure, Bleeding Gums, Change in Voice, Dental Pain, Dry Mouth, Dysphagia, Halitosis, Hoarsness, Lip Swelling, Mouth Lesions, Mouth Pain, Odynophagia, Sore Throat, Throat Swelling, Tongue Swelling, Facial Pain, Neck Pain, Neck Mass, Other - Breasts Breasts: absent: As Per HPI, Change in Shape, Mass, Pain, Nipple Discharge, Nipple Inversion, Skin Changes, Swelling, Other - Cardiovascular Cardiovascular: absent: As Per HPI, Acrocyanosis, Chest Pain, Chest Pain at Rest , Chest Pain with Activity, Claudication, Diaphoresis, Dyspnea, Dyspnea on Exertion, Edema, Irregular Heart Rhythm, Pain Radiating to Arm/Neck/Jaw, Leg Edema, Leg Ulcers, Lightheadedness, Orthopnea, Palpitations, Paroxysmal Nocturnal Dyspnea, Pedal Edema, Radiating Pain, Rapid Heart Rate, Slow Heart Rate, Syncope, Other - Respiratory Respiratory: As Per HPI - Gastrointestinal Gastrointestinal: absent: As Per HPI, Abdominal Pain, Belching, Bloating, Change in Bowel Habits, Change in Stool Character, Coffee Ground Emesis, Constipation, Cramping, Diarrhea, Dyspepsia, Dysphagia, Early Satiety, Excessive Flatus, Fecal Incontinence, Heartburn, Hematemesis, Hematochezia, Loose Stools, Melena, Nausea, Odynophagia, Temesmus, Vomiting, Other - Reproductive: Female Reproductive:Female: absent: As Per HPI, Amenorrhea, Amenorrhea/ Control, Currently Menstual, Cycle <21 Days, Cycle >35 Days, Cycle Variable, Menses 1-7 Days, Menses >/= 8 Days, Menses Variable, Cycle > 4 Weeks Between, No Menses for 6 Months, Heavy Menses, Light Menses, Normal Menses, Spotting Between Cycles , S/P Hysterectomy, Menopausal, Post Menopausal, Premenarche, Abnormal Vaginal Bleeding, Dysmenorrhea, Dyspareunia, Genital Lesions, Genital Pruritis, Pelvic Pain, Prolapse Symptoms, Sexual Dysfunction, Vaginal Discharge, Vaginal Dryness , Vaginal Odor, Vaginal Pruritis, Other - Menstruation Menstruation: absent: As Per HPI, Amenorrhea, Amenorrhea/ Control, Currently Menstual, Cycle <21 Days, Cycle >35 Days, Cycle Variable, Menses 1-7 Days, Menses >/= 8 Days, Menses Variable, Cycle > 4 Weeks Between, No Menses for 6 Months, Heavy Menses, Light Menses, Normal Menses, Spotting Between Cycles , S/P Hysterectomy, Menopausal, Post Menopausal, Premenarche, Abnormal Vaginal Bleeding, Dysmenorrhea, Other - Musculoskeletal Musculoskeletal: absent: As Per HPI, Abnormal Gait, Arthralgias, Atrophy, Back Pain, Deformity, Joint Swelling, Limited Range of Motion, Loss of Height, Muscle Cramps, Muscle Weakness, Myalgias, Neck Pain, Numbness, Radiating Pain into Limb, Stiffness, Tingling, Other - Integumentary Integumentary: absent: As Per HPI, Acne, Alopecia, Bleeding Lesions, Change in Hair, Change in Nails, Change in Pigmentation, Changing Lesions, Dry Skin, Erythema, Furuncle, Hirsutism, Lesions, New Lesions, Non-Healing Lesions, Photosensitivity, Pruritus, Rash, Skin Pain, Skin Ulcer, Sores, Striae, Swelling , Unusual Bruising, Wounds, Jaundice, Other - Neurological Neurological: absent: As Per HPI, Abnormal Gait, Abnormal Hearing, Abnormal Movements, Abnormal Speech, Behavioral Changes, Burning Sensations, Confusion, Convulsions, Disequilibrium, Dizziness, Numbness, Focal Weakness, Frequent Falls , Headaches, Lack of Coordination, Loss of Vision, Memory Loss, Paresthesias, Radicular Pain, Restless Legs, Sensory Deficit, Syncope, Tingling, Tremor, Vertigo, Weakness, Other Visual Disturbances, Other - Psychiatric Psychiatric: absent: As Per HPI, Abnormal Sleep Pattern, Anhedonia, Anxiety, Auditory Hallucinations, Behavioral Changes, Change in Appetite, Change in Libido, Confusion, Depression, Difficulty Concentrating, Hallucinations, Homicidal Ideation, Hopelessness, Irritability, Memory Loss, Mood Swings, Panic Attacks, Paranoia, Suicidal Ideation, Visual Hallucinations, Tactile Hallucinations, Other - Hematologic/Lymphatic Hematologic: absent: As Per HPI, Easy Bleeding, Easy Bruising, Lymphadenopathy, Other Past Patient History - Infectious Disease Hx of Infectious Diseases: None - Past Medical History & Family History Past Medical History?: Yes - Past Social History Smoking Status: Smoker Currrent Status Unknown - CARDIAC Hx Cardiac Disorders: Yes Hx Hypercholesterolemia: Yes Hx Hypertension: Yes - MUSCULOSKELETAL/RHEUMATOLOGICAL Hx Falls: No - GASTROINTESTINAL Hx Diverticulitis: Yes - PSYCHIATRIC Hx Substance Use: No - SURGICAL HISTORY Hx Appendectomy: Yes Hx Cholecystectomy: Yes - ANESTHESIA Hx Anesthesia: Yes Hx Anesthesia Reactions: No Hx Malignant Hyperthermia: No Has any member of the family had a problem w/ anesthesia?: No Meds Allergies/Adverse Reactions: Allergies Allergy/AdvReac Type Severity Reaction Status Date / Time aspirin Allergy VOMITING Verified 01/05/18 21:56 ciprofloxacin HCl Allergy RASH Verified 01/05/18 21:56 [From Cipro] - Medications Medications: Current Medications Acetaminophen (Tylenol 325mg Tab) 650 mg PO Q6 PRN PRN Reason: Fever >100.4 F Enoxaparin Sodium (Lovenox) 40 mg SC DAILY [facility] Last Admin: 01/19/18 09:26 Dose: 40 mg Sodium Chloride (Sodium Chloride 0.9%) 1,000 mls @ 100 mls/hr IV .Q10H [facility] Last Admin: 01/18/18 15:35 Dose: 100 mls/hr Ceftriaxone Sodium 1 gm/ (Sodium Chloride) 100 mls @ 100 mls/hr IVPB DAILY [facility] PRN Reason: Protocol Last Admin: 01/19/18 10:15 Dose: 100 mls/hr Losartan Potassium (Cozaar) 100 mg PO DAILY [facility] Last Admin: 01/19/18 09:26 Dose: 100 mg Pneumococcal Polyvalent Vaccine (Pneumovax 23 Vaccine) 0.5 ml IM .ONCE ONE Stop: 01/20/18 10:01 Rosuvastatin Calcium (Crestor) 20 mg PO HS [facility] Last Admin: 01/18/18 21:54 Dose: 20 mg Physical Exam - Constitutional Appears: Non-toxic, Chronically Ill - Head Exam Head Exam: ATRAUMATIC, NORMAL INSPECTION, NORMOCEPHALIC - Eye Exam Eye Exam: EOMI, PERRL. absent: Scleral icterus - ENT Exam ENT Exam: Mucous Membranes Dry, Normal External Ear Exam - Neck Exam Neck exam: Negative for: Lymphadenopathy - Respiratory Exam Respiratory Exam: Decreased Breath Sounds, Clear to Auscultation Bilateral - Cardiovascular Exam Cardiovascular Exam: REGULAR RHYTHM, +S1, +S2 - GI/Abdominal Exam GI & Abdominal Exam: Diminished Bowel Sounds, Soft. absent: Tenderness - Rectal Exam Rectal Exam: Deferred - Exam Exam: NORMAL INSPECTION - Extremities Exam Extremities exam: Positive for: pedal pulses present. Negative for: calf tenderness, pedal edema, tenderness - Back Exam Back exam: absent: CVA tenderness (L), CVA tenderness (R) - Neurological Exam Neurological exam: Alert, CN II-XII Intact, Oriented x3, Reflexes Normal - Psychiatric Exam Psychiatric exam: Normal Mood - Skin Skin Exam: Dry Results - Vital Signs Recent Vital Signs: Last Vital Signs Temp 99.6 F 01/19/18 07:00 Pulse 90 01/19/18 07:00 Resp 20 01/19/18 07:00 BP 121/64 01/19/18 07:00 Pulse Ox 95 01/19/18 07:00 - Labs Result Diagrams: 01/19/18 07:30 01/19/18 07:30 Labs: Laboratory Results - last 24 hr 01/18/18 01/18/18 01/18/18 16:04 16:04 16:04 WBC RBC Hgb Hct MCV MCH MCHC RDW Plt Count MPV Neut % (Auto) Lymph % (Auto) Cloud % (Auto) Eos % (Auto) Baso % (Auto) Neut # (Auto) Lymph # (Auto) Cloud # (Auto) Eos # (Auto) Baso # (Auto) ESR 19 Sodium Potassium Chloride Carbon Dioxide Anion Gap BUN Creatinine Est GFR ( Amer) Est GFR (Non-Af Amer) Random Glucose Hemoglobin A1c Lactic Acid Calcium Total Bilirubin AST ALT Alkaline Phosphatase C-Reactive Protein 86.20 H Total Protein Albumin Globulin Albumin/Globulin Ratio Triglycerides Cholesterol LDL Cholesterol Direct HDL Cholesterol Procalcitonin 0.21 TSH 3rd Generation 01/18/18 01/19/18 01/19/18 16:04 07:30 07:30 WBC 16.2 H RBC 4.24 Hgb 12.7 Hct 37.1 MCV 87.5 MCH 30.0 MCHC 34.3 RDW 13.9 Plt Count 238 MPV 8.0 Neut % (Auto) 77.5 H Lymph % (Auto) 11.7 L Cloud % (Auto) 9.4 Eos % (Auto) 1.0 Baso % (Auto) 0.4 Neut # (Auto) 12.6 H Lymph # (Auto) 1.9 Cloud # (Auto) 1.5 H Eos # (Auto) 0.2 Baso # (Auto) 0.1 ESR Sodium 137 Potassium 3.8 Chloride 106 Carbon Dioxide 23 Anion Gap 12 BUN 8 Creatinine 0.8 Est GFR ( Amer) > 60 Est GFR (Non-Af Amer) > 60 Random Glucose 127 H Hemoglobin A1c Lactic Acid 1.3 Calcium 8.2 L Total Bilirubin 0.7 AST 13 L D ALT 25 Alkaline Phosphatase 76 C-Reactive Protein Total Protein 6.6 Albumin 3.6 Globulin 3.0 Albumin/Globulin Ratio 1.2 Triglycerides 75 D Cholesterol 114 LDL Cholesterol Direct 56 HDL Cholesterol 34 Procalcitonin TSH 3rd Generation 2.79 01/19/18 07:30 WBC RBC Hgb Hct MCV MCH MCHC RDW Plt Count MPV Neut % (Auto) Lymph % (Auto) Cloud % (Auto) Eos % (Auto) Baso % (Auto) Neut # (Auto) Lymph # (Auto) Cloud # (Auto) Eos # (Auto) Baso # (Auto) ESR Sodium Potassium Chloride Carbon Dioxide Anion Gap BUN Creatinine Est GFR ( Amer) Est GFR (Non-Af Amer) Random Glucose Hemoglobin A1c 6.2 Lactic Acid Calcium Total Bilirubin AST ALT Alkaline Phosphatase C-Reactive Protein Total Protein Albumin Globulin Albumin/Globulin Ratio Triglycerides Cholesterol LDL Cholesterol Direct HDL Cholesterol Procalcitonin TSH 3rd Generation Assessment & Plan (1) Pyelonephritis Status: Acute (2) Abdominal pain Status: Acute (3) Acute urinary tract infection Status: Acute (4) Bronchitis Status: Acute - Assessment and Plan (Free Text) Assessment: US shows bilat nephrolithiasis w/o obstruction recc: eval switrch to cefepime pending cultures may need 14 days rx
--- NOTE | 2018-01-19 15:57 | PN ---
DATE: 01/19/2018 SUBJECTIVE: The patient was seen and examined at bedside. The patient is slightly feeling better than yesterday. Denies any new complaints. All other systems reviewed and were found to be negative. PHYSICAL EXAMINATION: GENERAL: Elderly female lying in bed, in no acute distress. VITAL SIGNS: Blood pressure 121/64, pulse 90, respirations 20, temperature 99.6 degrees Fahrenheit, O2 sat is 95% on room air. HEENT: Pupils equal, round, reacting to light and accommodation. Extraocular muscles intact. No icterus. No pallor. No oral thrush. No pharyngeal congestion. NECK: Supple. No JVD. LUNGS: Bilateral vesicular breath sounds. No wheezing. No rhonchi. CVS: S1 and S2 present, regular. ABDOMEN: Soft, nontender. Bowel sounds present. No guarding. No rigidity. No rebound tenderness noted. TELEGRAPH INSPECTOR: Alert, awake, oriented x3. No focal deficits noted. EXTREMITIES: No edema. Palpable peripheral pulses. MEDICATIONS: Include Tylenol 650 mg p.o. every 6 p.r.n., Rocephin 1 gm daily, Lovenox 40 mg subcu daily, Cozaar 100 mg p.o. daily, Crestor 20 mg p.o. at bedtime, normal saline at 100 mL an hour. LABORATORY DATA: Labs from this morning: WBC 16.2, hemoglobin 12.7, hematocrit 37.1, platelets 238. ESR 19. Sodium 137, potassium 4.8, chloride 106, bicarb 23, BUN 8, creatinine 0.8, glucose 127. Hemoglobin A1c 6.2. Lactic acid 1.3. Calcium 8.2, total bilirubin 0.7, AST 13, ALT 25, alkaline phosphatase 76, C-reactive protein 86.2, total protein 6.6, albumin 3.6, globulin 3, triglycerides 75, cholesterol 114, LDL 56 and HDL 34, procalcitonin 0.21, TSH 2.79. Urine culture showing gram-negative rods. Blood cultures negative so far. ASSESSMENT AND PLAN: Elderly female with history of hypertension, hyperlipidemia, admitted for fever, urinary tract infection with possible sepsis, urine culture consistent with gram-negative rods. The patient's white count is slightly worse than yesterday, but otherwise the patient is clinically better, improving. Temperatures are better today. We will continue with Rocephin 1 gm intravenously daily and continue with other current medications. We will await identification. We will request Infectious Disease consult with Dr. Amaya. Continue with other current medications. Repeat labs in a.m. Michael Cervantes MD
[2018-01-19 23:03] LABS: SQUAMOUS EPITHIAL 10 /hpf (0-5); URINE BACTERIA RARE (<OCC); URINE BILIRUBIN NEGATIVE (NEGATIVE); URINE BLOOD 2+ (NEGATIVE); URINE CLARITY Hazy (Clear); URINE COLOR Yellow (YELLOW); URINE GLUCOSE (UA) NORMAL (Normal); URINE LEUKOCYTE ESTERASE 3+ Leu/uL (Negative); URINE PROTEIN NEGATIVE (NEGATIVE); URINE UROBILINOGEN NORMAL mg/dL (0.2-1.0)
[2018-01-20] MEDS: Sodium Chloride 0.9% 1,000 ML IV SCH ×2 (06:21→18:04)
[2018-01-20] MEDS: Enoxaparin 40 mg Syringe SC SCH (09:32)
[2018-01-20] MEDS ORDERED: Pneumococcal 23-Valent Vaccine IM ONE (10:00)
--- NOTE | 2018-01-20 10:16 | CP.PCM.PN ---
Subjective - Date & Time of Evaluation Date of Evaluation: 01/20/18 Time of Evaluation: 10:15 - Subjective Subjective: Progress note dictated #[id number] Objective - Vital Signs/Intake and Output Vital Signs (last 24 hours): Temp Pulse Resp BP Pulse Ox 98.5 F 83 18 135/73 96 01/20/18 07:51 01/20/18 07:51 01/20/18 07:51 01/20/18 07:51 01/20/18 07:51 Intake and Output: 01/20/18 01/20/18 06:59 18:59 Intake Total 1000 Balance 1000 - Medications Medications: Current Medications Acetaminophen (Tylenol 325mg Tab) 650 mg PO Q6 PRN PRN Reason: Fever >100.4 F Enoxaparin Sodium (Lovenox) 40 mg SC DAILY [facility] Last Admin: 01/20/18 09:32 Dose: 40 mg Sodium Chloride (Sodium Chloride 0.9%) 1,000 mls @ 100 mls/hr IV .Q10H [facility] Last Admin: 01/20/18 06:21 Dose: 100 mls/hr Meropenem 500 mg/ Sodium (Chloride) 100 mls @ 100 mls/hr IVPB Q6 QUE PRN Reason: Protocol Losartan Potassium (Cozaar) 100 mg PO DAILY [facility] Last Admin: 01/20/18 09:31 Dose: 100 mg Rosuvastatin Calcium (Crestor) 20 mg PO HS [facility] Last Admin: 01/19/18 21:28 Dose: 20 mg - Labs Labs: 01/19/18 07:30 01/19/18 07:30
[2018-01-20 11:34] LABS: BASO % 0.3 % (0.0-2.0); EOS # 0.2 K/uL (0.0-0.7); EOS % 3.1 % (0.0-4.0); HEMOGLOBIN 12.6 g/dL (11.0-16.0); LYMPH # 1.5 K/uL (1.0-4.3); LYMPH % 18.9 % (20.0-40.0); MEAN CELL VOLUME 87.6 fL (81.0-99.0); MEAN CORPUSCULAR HEMOGLOBIN 29.8 pg (27.0-31.0); MEAN PLATELET VOLUME 7.9 fL (7.2-11.7); MONO # 0.8 K/uL (0.0-0.8); MONO % 10.2 % (0.0-10.0); NEUT # 5.2 K/uL (1.8-7.0); NEUT % 67.5 % (50.0-75.0); RBC 4.23 Mil/uL (3.80-5.20); RED CELL DISTRIBUTION WIDTH 13.2 % (11.5-14.5); WHITE BLOOD COUNT 7.7 K/uL (4.8-10.8)
[2018-01-20 11:47] LABS: ALB/GLOB RATIO 1.1 (1.0-2.1); ALBUMIN 3.5 g/dL (3.5-5.0); ALT/SGPT 16 U/L (9-52); AST/SGOT 15 U/L (14-36); BLOOD UREA NITROGEN 7 mg/dL (7-17); CALCIUM 8.5 mg/dl (8.6-10.4); GFR AFRICAN-AMERICAN > 60; GFR NON-AFRICAN AMERICAN > 60
--- NOTE | 2018-01-20 12:31 | CARD ---
APPROVED REPORT Date of service: 01/18/2018 EKG Measurement Heart [id number] <Conclusion> Normal sinus rhythm Normal ECG
[2018-01-20] MEDS: Meropenem 500 MG in Sodium Chloride 0.9% 100 ML IVPB SCH ×2 (12:46→18:04)
--- NOTE | 2018-01-20 12:47 | PCM.URO ---
Urology Progress Note - Objective Lab Studies: Reviewed (urolithiasis plans to be discussed) Lab Results Last 24 Hours: Laboratory Results - last 24 hr 01/19/18 01/20/18 01/20/18 22:19 11:21 11:21 WBC 7.7 D RBC 4.23 Hgb 12.6 Hct 37.0 MCV 87.6 MCH 29.8 MCHC 34.0 RDW 13.2 Plt Count 247 MPV 7.9 Neut % (Auto) 67.5 Lymph % (Auto) 18.9 L [place] % (Auto) 10.2 H Eos % (Auto) 3.1 Baso % (Auto) 0.3 Neut # (Auto) 5.2 Lymph # (Auto) 1.5 [place] # (Auto) 0.8 Eos # (Auto) 0.2 Baso # (Auto) 0.0 Sodium 139 Potassium 3.8 Chloride 105 Carbon Dioxide 23 Anion Gap 15 BUN 7 Creatinine 0.8 Est GFR ( Amer) > 60 Est GFR (Non-Af Amer) > 60 Random Glucose 171 H Calcium 8.5 L Total Bilirubin 0.3 AST 15 ALT 16 Alkaline Phosphatase 64 Total Protein 6.9 Albumin 3.5 Globulin 3.3 Albumin/Globulin Ratio 1.1 Urine Color Yellow Urine Clarity Hazy Urine pH 7.0 Ur Specific [place] 1.008 Urine Protein Negative Urine Glucose (UA) Normal Urine Ketones Negative Urine Blood 2+ H Urine Nitrate Negative Urine Bilirubin Negative Urine Urobilinogen Normal Ur Leukocyte Esterase 3+ H Urine WBC (Auto) 51 H Urine RBC (Auto) 27 H Ur Squamous Epith Cells 10 H Urine Bacteria Rare Intake & Output: Intake & Output 01/19/18 01/20/18 01/20/18 18:59 06:59 18:59 Intake Total 800 1000 Balance 800 1000 Intake: Intake, IV Amount 800 800 Left Wrist 800 800 Oral 200 Other: # Voids Urine, Voided 2 4 Vital Signs: Vital Signs - 24 hr 01/19/18 01/19/18 01/20/18 16:00 23:45 07:51 Temperature 98.9 F 98.4 F 98.5 F Pulse Rate 82 60 83 Respiratory 20 20 18 Rate Blood Pressure 144/78 110/65 135/73 O2 Sat by Pulse 97 95 96 Oximetry
[2018-01-20 15:53] VITALS: RESP 20
--- NOTE | 2018-01-20 17:16 | CT ---
Date of service: 01/20/2018 PROCEDURE: CT Abdomen and Pelvis without intravenous contrast HISTORY: stones/ uti COMPARISON: CT scan of the abdomen and pelvis dated 05/19/2015. TECHNIQUE: Contiguous images were obtained from the domes of the diaphragms to the upper thighs without the administration of intravenous contrast. Oral contrast was not administered. Radiation dose: Total exam DLP = 450.0 mGy-cm. This CT exam was performed using one or more of the following dose reduction techniques: Automated exposure control, adjustment of the mA and/or kV according to patient size, and/or use of iterative reconstruction technique. FINDINGS: LOWER THORAX: Trace bilateral pleural effusions. Heart size normal. Small pericardial effusion. LIVER: Stable 1.4 cm hypodensity in the inferior right hepatic lobe. No gross lesion or ductal dilatation. GALLBLADDER AND BILE DUCTS: Prior cholecystectomy with surgical clips in place. Stable CBD dilatation the PANCREAS: Unremarkable. No gross lesion or ductal dilatation. SPLEEN: Unremarkable. ADRENALS: Unremarkable. No mass. KIDNEYS AND URETERS: Punctate left upper pole nonobstructive calculus. Mild prominence of the left renal collecting system with mild perinephric stranding. No hydronephrosis. No solid mass. VASCULATURE: Unremarkable. No aortic aneurysm. BOWEL: Prior rectal surgery. Colonic diverticulosis. No obstruction. No gross mural thickening. APPENDIX: Prior appendectomy. PERITONEUM: Unremarkable. No free fluid. No free air. LYMPH NODES: Unremarkable. No enlarged lymph nodes. BLADDER: Unremarkable. REPRODUCTIVE: Unremarkable. BONES: No acute fracture. Left L2 and right L4 vertebral body hemangioma redemonstrated. OTHER FINDINGS: Retro aortic left renal vein. IMPRESSION: No obstructive uropathy ; however, there is mild prominence of left renal artery consistent with mild perinephric stranding suggesting recently passed left genitourinary calculus. Additional stable findings as above.
--- NOTE | 2018-01-20 17:19 | US ---
Date of service: 01/20/2018 PROCEDURE: Ultrasound of the Kidneys HISTORY: stones COMPARISON: Renal/bladder ultrasound dated 01/18/2018. TECHNIQUE: Sonogram of the kidneys. FINDINGS: RIGHT KIDNEY: Measures: 11.3 x 5.6 x 5.6 cm. 4 mm nonobstructive midpole calculus. Normal in size, contour and echogenicity. No solid mass lesion or hydronephrosis visualized. LEFT KIDNEY: Measures: 10.5 x 5.3 x 4.8 cm. 5 mm nonobstructive midpole calculus. Normal in size, contour and echogenicity. No solid mass lesion or hydronephrosis visualized. OTHER FINDINGS: Prevoid urinary bladder volume 414.6 cc. No significant postvoid residual volume. Bilateral ureteral jets visualized. IMPRESSION: Bilateral nonobstructive renal calculi. No significant postvoid residual volume
--- NOTE | 2018-01-20 18:09 | CP.PCM.PN ---
Subjective - Date & Time of Evaluation Date of Evaluation: 01/20/18 Time of Evaluation: 09:00 - Subjective Subjective: 72 yo female with urolithiasis and ESBL + E coli in urine IV rx in progress on board will likely need 14 days IV rx Objective - Vital Signs/Intake and Output Vital Signs (last 24 hours): Temp Pulse Resp BP Pulse Ox 98.1 F 82 20 127/66 96 01/20/18 15:52 01/20/18 15:52 01/20/18 15:52 01/20/18 15:52 01/20/18 15:52 Intake and Output: 01/20/18 01/20/18 06:59 18:59 Intake Total 1000 800 Balance 1000 800 - Medications Medications: Current Medications Acetaminophen (Tylenol 325mg Tab) 650 mg PO Q6 PRN PRN Reason: Fever >100.4 F Enoxaparin Sodium (Lovenox) 40 mg SC DAILY [facility] Last Admin: 01/20/18 09:32 Dose: 40 mg Sodium Chloride (Sodium Chloride 0.9%) 1,000 mls @ 100 mls/hr IV .Q10H [facility] Last Admin: 01/20/18 06:21 Dose: 100 mls/hr Meropenem 500 mg/ Sodium (Chloride) 100 mls @ 100 mls/hr IVPB Q6 QUE PRN Reason: Protocol Last Admin: 01/20/18 12:46 Dose: 100 mls/hr Losartan Potassium (Cozaar) 100 mg PO DAILY [facility] Last Admin: 01/20/18 09:31 Dose: 100 mg Rosuvastatin Calcium (Crestor) 20 mg PO HS [facility] Last Admin: 01/19/18 21:28 Dose: 20 mg - Labs Labs: 01/20/18 11:21 01/20/18 11:21 - Constitutional Appears: Non-toxic, Chronically Ill - Head Exam Head Exam: NORMOCEPHALIC - Eye Exam Eye Exam: PERRL - ENT Exam ENT Exam: Mucous Membranes Dry - Neck Exam Neck Exam: absent: Lymphadenopathy - Respiratory Exam Respiratory Exam: Decreased Breath Sounds, Clear to Ausculation Bilateral - Cardiovascular Exam Cardiovascular Exam: REGULAR RHYTHM - GI/Abdominal Exam GI & Abdominal Exam: Distended, Soft - Rectal Exam Rectal Exam: Deferred - Exam Exam: NORMAL INSPECTION - Extremities Exam Extremities Exam: absent: Pedal Edema - Back Exam Back Exam: absent: CVA tenderness (L), CVA tenderness (R) - Neurological Exam Neurological Exam: Alert, Awake, Oriented x3 - Psychiatric Exam Psychiatric exam: Normal Mood - Skin Skin Exam: Dry Assessment and Plan (1) Pyelonephritis Status: Acute (2) Abdominal pain Status: Acute (3) Acute urinary tract infection Status: Acute (4) Bronchitis Status: Acute - Assessment and Plan (Free Text) Plan: 72 yo female with urolithiasis and ESBL + E coli in urine IV rx in progress on board will likely need 14 days IV rx
[2018-01-20 21:01] LABS: SQUAMOUS EPITHIAL 6 /hpf (0-5); URINE BACTERIA RARE (<OCC); URINE BILIRUBIN NEGATIVE (NEGATIVE); URINE BLOOD 2+ (NEGATIVE); URINE CLARITY Clear (Clear); URINE COLOR Straw (YELLOW); URINE GLUCOSE (UA) NORMAL (Normal); URINE LEUKOCYTE ESTERASE 2+ Leu/uL (Negative); URINE PROTEIN NEGATIVE (NEGATIVE); URINE UROBILINOGEN NORMAL mg/dL (0.2-1.0)
--- NOTE | 2018-01-20 22:51 | PN ---
DATE: 01/20/2018 SUBJECTIVE: The patient was seen and examined at bedside. The patient is feeling much better. Denies any new complaints. Denies any fever. PHYSICAL EXAMINATION: GENERAL: Elderly female, lying in bed, in no acute distress. VITAL SIGNS: Blood pressure 135/73, pulse 83, respirations 18, temperature 98.5 degrees Fahrenheit, O2 sat is 96% on room air. HEENT: Pupils equal, round and reacting to light and accommodation. Extraocular muscles intact. No icterus. No pallor. No oral thrush. No pharyngeal congestion. NECK: Supple. No JVD. LUNGS: Bilateral vesicular breath sounds. No wheezing. No rhonchi. CVS: S1 and S2 present, regular. ABDOMEN: Soft, nontender. Bowel sounds present. No guarding. No rigidity. No rebound tenderness noted. RACK CARRIER: Alert, awake, and oriented x3. No focal deficits noted. EXTREMITIES: No edema. MEDICATIONS: Include Tylenol as needed, Lovenox 40 mg subcu daily, Cozaar 100 mg daily, meropenem 500 mg IV every 6 hours, Crestor 20 mg p.o. at bedtime, IV fluids normal saline at 100 mL an hour. LABORATORY DATA: Labs from today: WBC 7.7, hemoglobin 12.6, hematocrit 37, platelets 247. Sodium 139, potassium 3.8, chloride 105, bicarb 23, BUN 7, creatinine 0.8, glucose 171, calcium 8.5. AST 15, ALT 16, alkaline phosphatase 64. UA: Specific gravity 1.008, pH of 7, blood 2+, leucocyte esterase 3+, wbc's 31, rbc's 27. Urine culture consistent with E. coli, resistant to ampicillin, Bactrim, cefazolin, ciprofloxacin, and cefepime and sensitive to piperacillin, tazobactam, meropenem, nitrofurantoin, ertapenem and amikacin. Blood cultures remain negative. CT scan of the abdomen and pelvis consistent with no obstructive uropathy; however, there is mild prominence of left renal artery consistent with mild perinephric stranding suggesting recently passed left genitourinary calculus. ASSESSMENT AND PLAN: Elderly female with history of hypertension, hyperlipidemia, admitted for urinary tract infection with Escherichia coli and nephrolithiasis nonobstructive. Escherichia coli is resistant to cefepime and Rocephin. Two antibiotics are switched to meropenem by Dr. Amaya. The patient's white count is improving and remains afebrile. We will follow up with Dr. Amaya regarding the length of antibiotic course and repeat UA and urine culture. We will request social insurance administrator for discharge planning. Michael Cervantes MD
[2018-01-21] MEDS: Meropenem 500 MG in Sodium Chloride 0.9% 100 ML IVPB SCH ×5 (00:23→23:14)
[2018-01-21] MEDS: Sodium Chloride 0.9% 1,000 ML IV SCH ×4 (04:16→22:51)
--- NOTE | 2018-01-21 09:23 | CP.PCM.PN ---
Subjective - Date & Time of Evaluation Date of Evaluation: 01/21/18 Time of Evaluation: 09:30 - Subjective Subjective: Progress note dictated #[id number] Objective - Vital Signs/Intake and Output Vital Signs (last 24 hours): Temp Pulse Resp BP Pulse Ox 97.9 F 78 20 144/85 96 01/21/18 08:23 01/21/18 08:23 01/21/18 08:23 01/21/18 08:23 01/21/18 08:23 - Medications Medications: Current Medications Acetaminophen (Tylenol 325mg Tab) 650 mg PO Q6 PRN PRN Reason: Fever >100.4 F Enoxaparin Sodium (Lovenox) 40 mg SC DAILY [facility] Last Admin: 01/20/18 09:32 Dose: 40 mg Sodium Chloride (Sodium Chloride 0.9%) 1,000 mls @ 100 mls/hr IV .Q10H [facility] Last Admin: 01/21/18 06:12 Dose: 100 mls/hr Meropenem 500 mg/ Sodium (Chloride) 100 mls @ 100 mls/hr IVPB Q6 [facility] PRN Reason: Protocol Last Admin: 01/21/18 06:12 Dose: 100 mls/hr Losartan Potassium (Cozaar) 100 mg PO DAILY [facility] Last Admin: 01/20/18 09:31 Dose: 100 mg Rosuvastatin Calcium (Crestor) 20 mg PO HS [facility] Last Admin: 01/20/18 22:18 Dose: 20 mg - Labs Labs: 01/20/18 11:21 01/20/18 11:21
[2018-01-21] MEDS: Enoxaparin 40 mg Syringe SC SCH (10:28)
--- NOTE | 2018-01-21 15:55 | CP.PCM.PN ---
Subjective - Date & Time of Evaluation Date of Evaluation: 01/21/18 Time of Evaluation: 15:55 - Subjective Subjective: SPOKE WITH PATIENT AND ABOUT A PICC LINE CONSENT DUE TO HALFWAY ABX TX RECOMMEND BY ID DR GRAF PATIENT IS STILL UNDECIDED IF SHE WANTS THE PICC LINE OR NOT / NO CONSENT OBTAINED PMD AND DR GRAF MADE3 AWARE Objective - Vital Signs/Intake and Output Vital Signs (last 24 hours): Temp Pulse Resp BP Pulse Ox 97.9 F 78 20 144/85 96 01/21/18 08:23 01/21/18 08:23 01/21/18 08:23 01/21/18 08:23 01/21/18 08:23 - Medications Medications: Current Medications Acetaminophen (Tylenol 325mg Tab) 650 mg PO Q6 PRN PRN Reason: Fever >100.4 F Enoxaparin Sodium (Lovenox) 40 mg SC DAILY [facility] Last Admin: 01/21/18 10:28 Dose: 40 mg Sodium Chloride (Sodium Chloride 0.9%) 1,000 mls @ 100 mls/hr IV .Q10H [facility] Last Admin: 01/21/18 13:05 Dose: Not Given Meropenem 500 mg/ Sodium (Chloride) 100 mls @ 100 mls/hr IVPB Q6 [facility] PRN Reason: Protocol Last Admin: 01/21/18 11:35 Dose: 100 mls/hr Losartan Potassium (Cozaar) 100 mg PO DAILY [facility] Last Admin: 01/21/18 10:28 Dose: 100 mg Rosuvastatin Calcium (Crestor) 20 mg PO HS [facility] Last Admin: 01/20/18 22:18 Dose: 20 mg - Labs Labs: 01/20/18 11:21 01/20/18 11:21
--- NOTE | 2018-01-21 16:23 | CP.PCM.PN ---
Subjective - Date & Time of Evaluation Date of Evaluation: 01/21/18 Time of Evaluation: 09:00 - Subjective Subjective: improving on iv rx less pain gu on board Objective - Vital Signs/Intake and Output Vital Signs (last 24 hours): Temp Pulse Resp BP Pulse Ox 97.9 F 78 20 144/85 96 01/21/18 08:23 01/21/18 08:23 01/21/18 08:23 01/21/18 08:23 01/21/18 08:23 - Medications Medications: Current Medications Acetaminophen (Tylenol 325mg Tab) 650 mg PO Q6 PRN PRN Reason: Fever >100.4 F Enoxaparin Sodium (Lovenox) 40 mg SC DAILY [facility] Last Admin: 01/21/18 10:28 Dose: 40 mg Sodium Chloride (Sodium Chloride 0.9%) 1,000 mls @ 100 mls/hr IV .Q10H [facility] Last Admin: 01/21/18 13:05 Dose: Not Given Meropenem 500 mg/ Sodium (Chloride) 100 mls @ 100 mls/hr IVPB Q6 [facility] PRN Reason: Protocol Last Admin: 01/21/18 11:35 Dose: 100 mls/hr Losartan Potassium (Cozaar) 100 mg PO DAILY [facility] Last Admin: 01/21/18 10:28 Dose: 100 mg Rosuvastatin Calcium (Crestor) 20 mg PO HS [facility] Last Admin: 01/20/18 22:18 Dose: 20 mg - Labs Labs: 01/20/18 11:21 01/20/18 11:21 - Constitutional Appears: Non-toxic, Chronically Ill - Head Exam Head Exam: NORMOCEPHALIC - Eye Exam Eye Exam: PERRL - ENT Exam ENT Exam: Mucous Membranes Dry - Neck Exam Neck Exam: absent: Lymphadenopathy - Respiratory Exam Respiratory Exam: Decreased Breath Sounds - Cardiovascular Exam Cardiovascular Exam: REGULAR RHYTHM - GI/Abdominal Exam GI & Abdominal Exam: Distended, Soft - Rectal Exam Rectal Exam: Deferred - Exam Exam: NORMAL INSPECTION - Extremities Exam Extremities Exam: absent: Pedal Edema - Back Exam Back Exam: CVA tenderness (L). absent: CVA tenderness (R) - Neurological Exam Neurological Exam: Alert, Awake, Oriented x3 Neuro motor strength exam: Left Upper Extremity: 5, Right Upper Extremity: 5, Left Lower Extremity: 5, Right Lower Extremity: 5 - Psychiatric Exam Psychiatric exam: Depressed Assessment and Plan (1) Pyelonephritis Status: Acute (2) Abdominal pain Status: Acute (3) Acute urinary tract infection Status: Acute (4) Bronchitis Status: Acute - Assessment and Plan (Free Text) Assessment: cont iv merrem for 14 days
--- NOTE | 2018-01-21 23:27 | PN ---
DATE: 01/21/2018 SUBJECTIVE: The patient was seen and examined at bedside. The patient is feeling tired, intermittent burping and reflux pain. Denies any diarrhea. Denies any constipation. Denies any chest pain, shortness of breath, or wheezing. All other systems reviewed and were found to be negative. PHYSICAL EXAMINATION: GENERAL: Elderly female, lying in bed, in no acute distress. VITAL SIGNS: Blood pressure 138/70, pulse 78, respirations 20, temperature 98.2 degrees Fahrenheit, O2 sat is 97% on room air. HEENT: Pupils are equal, round and reacting to light and accommodation. Extraocular muscles intact. No icterus. No pallor. NECK: Supple. No JVD. LUNGS: Bilateral vesicular breath sounds. No wheezing. No rhonchi. CVS: S1 and S2 present, regular. ABDOMEN: Soft, nontender. Bowel sounds present. No guarding. No rigidity. No rebound tenderness noted. LIP CUTTER: Alert, awake, and oriented x3. No focal deficits noted. EXTREMITIES: No edema. Palpable peripheral pulses. MEDICATIONS: Include Tylenol 650 mg p.o. every 6 hours p.r.n., Lovenox 40 mg subcu daily, Cozaar 100 mg daily, meropenem 500 mg IV every 6 hours, Crestor 20 mg p.o. at bedtime, IV fluids normal saline at 100 mL an hour. LABORATORY DATA: Labs are not done today. Repeat urine culture, negative growth. Blood cultures negative. ASSESSMENT AND PLAN: Elderly female with history of hypertension and hyperlipidemia, admitted for extended-spectrum beta-lactamase positive Escherichia coli urinary tract infection and nephrolithiasis. The patient is improving on meropenem. We will continue with meropenem for 14 days as per Infectious Disease recommendation. Follow up with Urology. Discussed with case management regarding discharge planning. Writing for authorization for subacute rehab placement for possible intravenous antibiotic therapy. The patient had been refusing the peripherally inserted central catheter line placement. We will continue with the other current medications. We will follow up with Infectious Disease and Neurology regarding discharge planning. Blood pressure is stable on current medication. Michael Cervantes MD
[2018-01-22] MEDS: Meropenem 500 MG in Sodium Chloride 0.9% 100 ML IVPB SCH ×4 (05:01→23:22)
[2018-01-22] MEDS: Sodium Chloride 0.9% 1,000 ML IV SCH ×4 (09:05→23:24)
[2018-01-22] MEDS: Enoxaparin 40 mg Syringe SC SCH (09:07)
--- NOTE | 2018-01-22 10:10 | CP.PCM.PN ---
Subjective - Date & Time of Evaluation Date of Evaluation: 01/22/18 Time of Evaluation: 10:00 - Subjective Subjective: Progress note dictated #[id number] Objective - Vital Signs/Intake and Output Vital Signs (last 24 hours): Temp Pulse Resp BP Pulse Ox 97.9 F 77 20 139/72 96 01/22/18 08:00 01/22/18 08:00 01/22/18 08:00 01/22/18 08:00 01/22/18 08:00 Intake and Output: 01/22/18 01/22/18 06:59 18:59 Intake Total 1540 Balance 1540 - Medications Medications: Current Medications Acetaminophen (Tylenol 325mg Tab) 650 mg PO Q6 PRN PRN Reason: Fever >100.4 F Last Admin: 01/21/18 21:46 Dose: 650 mg Enoxaparin Sodium (Lovenox) 40 mg SC DAILY [facility] Last Admin: 01/22/18 09:07 Dose: 40 mg Sodium Chloride (Sodium Chloride 0.9%) 1,000 mls @ 100 mls/hr IV .Q10H [facility] Last Admin: 01/22/18 09:05 Dose: Not Given Meropenem 500 mg/ Sodium (Chloride) 100 mls @ 100 mls/hr IVPB Q6 [facility] PRN Reason: Protocol Last Admin: 01/22/18 05:01 Dose: 100 mls/hr Losartan Potassium (Cozaar) 100 mg PO DAILY [facility] Last Admin: 01/22/18 09:06 Dose: 100 mg Rosuvastatin Calcium (Crestor) 20 mg PO HS [facility] Last Admin: 01/21/18 21:45 Dose: 20 mg - Labs Labs: 01/20/18 11:21 01/20/18 11:21
--- NOTE | 2018-01-23 03:42 | PN ---
DATE: 01/22/2018 SUBJECTIVE: The patient was seen and examined at bedside. The patient is complaining of left-sided flank pain radiating to the front. Denies any nausea or vomiting. Denies any other new complaints. PHYSICAL EXAMINATION: GENERAL: Elderly female lying in bed, in no acute distress. VITAL SIGNS: Blood pressure 127/73, pulse 75, respirations 20, temperature 98 degrees Fahrenheit, O2 saturation 96% on room air. HEENT: Pupils are equal, round, and reactive to light and accommodation. Extraocular muscles are intact. No icterus. No pallor. No oral thrush. No pharyngeal congestion. NECK: Supple. No JVD. LUNGS: Bilateral vesicular breath sounds. No wheezing. No rhonchi. CVS: S1 and S2 present. Regular. ABDOMEN: Soft and nontender. Bowel sounds are present. No guarding. No rigidity. No rebound tenderness noted. CORE BAKER: Alert, awake, and oriented x3. No focal deficits noted. EXTREMITIES: No edema. Palpable peripheral pulses. MEDICATIONS: Include Tylenol as needed, Lovenox 40 mg subcu daily, Cozaar 100 mg daily, meropenem 500 mg IV every 6 hours, Crestor 20 mg p.o. at bedtime. Urine culture: Repeat culture from 01/20/2018, negative growth. Blood culture is negative. ASSESSMENT AND PLAN: Elderly female with history of hypertension, hyperlipidemia, admitted for extended-spectrum beta lactamase positive Escherichia coli, nephrolithiasis nonobstructive. The patient is on meropenem. Dr. Amaya is recommending 14 days of IV antibiotics. The patient refused PICC line, awaiting for authorization for subacute rehabilitation placement. Discussed with the patient's over the phone at patient's request. I explained the patient's condition and the need for PICC line. We will obtain PICC line on Wednesday. Follow up with social services analyst regarding subacute rehabilitation placement. Her blood pressure is stable. Continue with current blood pressure medications. Michael Cervantes MD
[2018-01-23] MEDS: Sodium Chloride 0.9% 1,000 ML IV SCH ×3 (04:12→22:51)
[2018-01-23] MEDS: Meropenem 500 MG in Sodium Chloride 0.9% 100 ML IVPB SCH ×3 (05:48→17:11)
[2018-01-23] MEDS: Enoxaparin 40 mg Syringe SC SCH (09:07)
--- NOTE | 2018-01-23 15:15 | CP.PCM.PN ---
Subjective - Date & Time of Evaluation Date of Evaluation: 01/23/18 Time of Evaluation: 09:00 - Subjective Subjective: awake alert nad denies fever Objective - Vital Signs/Intake and Output Vital Signs (last 24 hours): Temp Pulse Resp BP Pulse Ox 98.0 F 72 20 134/73 97 01/23/18 07:00 01/23/18 07:00 01/23/18 07:00 01/23/18 07:00 01/23/18 07:00 Intake and Output: 01/23/18 01/23/18 06:59 18:59 Intake Total 2500 580 Balance 2500 580 - Medications Medications: Current Medications Acetaminophen (Tylenol 325mg Tab) 650 mg PO Q6 PRN PRN Reason: Fever >100.4 F Last Admin: 01/21/18 21:46 Dose: 650 mg Enoxaparin Sodium (Lovenox) 40 mg SC DAILY [facility] Last Admin: 01/23/18 09:07 Dose: 40 mg Sodium Chloride (Sodium Chloride 0.9%) 1,000 mls @ 100 mls/hr IV .Q10H [facility] Last Admin: 01/23/18 11:35 Dose: 100 mls/hr Meropenem 500 mg/ Sodium (Chloride) 100 mls @ 100 mls/hr IVPB Q6 [facility] PRN Reason: Protocol Last Admin: 01/23/18 11:32 Dose: 100 mls/hr Losartan Potassium (Cozaar) 100 mg PO DAILY [facility] Last Admin: 01/23/18 09:08 Dose: 100 mg Rosuvastatin Calcium (Crestor) 20 mg PO HS [facility] Last Admin: 01/22/18 21:03 Dose: 20 mg - Labs Labs: 01/20/18 11:21 01/20/18 11:21 - Constitutional Appears: Non-toxic, Chronically Ill - Head Exam Head Exam: NORMOCEPHALIC - Eye Exam Eye Exam: PERRL - ENT Exam ENT Exam: Mucous Membranes Dry - Neck Exam Neck Exam: absent: Lymphadenopathy - Respiratory Exam Respiratory Exam: Decreased Breath Sounds - Cardiovascular Exam Cardiovascular Exam: REGULAR RHYTHM - GI/Abdominal Exam GI & Abdominal Exam: Distended, Soft - Rectal Exam Rectal Exam: Deferred - Exam Exam: NORMAL INSPECTION - Extremities Exam Extremities Exam: absent: Pedal Edema - Back Exam Back Exam: absent: CVA tenderness (L), CVA tenderness (R) Assessment and Plan (1) Pyelonephritis Status: Acute (2) Abdominal pain Status: Acute (3) Acute urinary tract infection Status: Acute (4) Bronchitis Status: Acute
--- NOTE | 2018-01-23 17:05 | CP.PCM.PN ---
Subjective - Date & Time of Evaluation Date of Evaluation: 01/23/18 Time of Evaluation: 17:05 - Subjective Subjective: Progress note dictated #[id number] Objective - Vital Signs/Intake and Output Vital Signs (last 24 hours): Temp Pulse Resp BP Pulse Ox 98.2 F 66 20 133/81 96 01/23/18 15:04 01/23/18 15:04 01/23/18 15:04 01/23/18 15:04 01/23/18 15:04 Intake and Output: 01/23/18 01/23/18 06:59 18:59 Intake Total 2500 580 Balance 2500 580 - Medications Medications: Current Medications Acetaminophen (Tylenol 325mg Tab) 650 mg PO Q6 PRN PRN Reason: Fever >100.4 F Last Admin: 01/21/18 21:46 Dose: 650 mg Enoxaparin Sodium (Lovenox) 40 mg SC DAILY [facility] Last Admin: 01/23/18 09:07 Dose: 40 mg Sodium Chloride (Sodium Chloride 0.9%) 1,000 mls @ 100 mls/hr IV .Q10H [facility] Last Admin: 01/23/18 11:35 Dose: 100 mls/hr Meropenem 500 mg/ Sodium (Chloride) 100 mls @ 100 mls/hr IVPB Q6 [facility] PRN Reason: Protocol Last Admin: 01/23/18 11:32 Dose: 100 mls/hr Losartan Potassium (Cozaar) 100 mg PO DAILY [facility] Last Admin: 01/23/18 09:08 Dose: 100 mg Rosuvastatin Calcium (Crestor) 20 mg PO HS [facility] Last Admin: 01/22/18 21:03 Dose: 20 mg - Labs Labs: 01/20/18 11:21 01/20/18 11:21
--- NOTE | 2018-01-23 23:20 | PN ---
DATE: 01/23/2018 SUBJECTIVE: The patient was seen and examined at bedside. The patient is feeling much better. Denies any left flank pain. Denies any urinary complaints. Denies any chest pain, shortness of breath, or wheezing. All other systems reviewed and were found to be negative. PHYSICAL EXAMINATION: GENERAL: Elderly female, lying in bed, in no acute distress. VITAL SIGNS: Blood pressure 133/81, pulse 66, respirations 20, temperature 98.2 degrees Fahrenheit, O2 saturation 96% on room air. HEENT: Pupils equal, round, and reacting to light and accommodation. Extraocular muscles intact. No icterus. No pallor. No oral thrush. No pharyngeal congestion. NECK: Supple. No JVD. LUNGS: Bilateral vesicular breath sounds. No wheezing, no rhonchi. CVS: S1 and S2 present, regular. ABDOMEN: Soft and nontender. Bowel sounds present. No guarding. No rigidity. No rebound tenderness noted. IRON WORKER FOREMAN: Alert, awake, and oriented x3. No focal deficits noted. EXTREMITIES: No edema. Palpable peripheral pulses. MEDICATIONS: Include Tylenol as needed, Lovenox 40 mg subcu daily, Cozaar 100 mg daily, meropenem 500 mg IV every 6 hours, Crestor 20 mg p.o. at bedtime, IV fluids 100 mL/hour. LABORATORY DATA: No new labs. Repeat cultures negative. ASSESSMENT AND PLAN: Elderly female with history of hypertension, hyperlipidemia, admitted for ESBL-positive E. coli, pyelonephritis, nephrolithiasis, status post left flank pain. Repeat urine cultures are negative. On IV meropenem. We will continue with IV antibiotics as per Dr. Amaya. Blood pressure is stable. Continue with current medications. We will follow up with delinquency prevention social worker for discharge planning to subacute rehab. Discussed with the patient's family, who is at the bedside. The patient is now agreeable to PICC line placement. We will request PICC line placement in a.m. Michael Cervantes MD
[2018-01-24] MEDS: Meropenem 500 MG in Sodium Chloride 0.9% 100 ML IVPB SCH ×5 (00:10→17:10)
[2018-01-24] MEDS: Sodium Chloride 0.9% 1,000 ML IV SCH ×2 (00:45→10:45)
[2018-01-24 07:34] LABS: BASO # 0.1 K/uL (0.0-0.2); BASO % 0.7 % (0.0-2.0); EOS # 0.6 K/uL (0.0-0.7); EOS % 7.2 % (0.0-4.0); HEMOGLOBIN 12.8 g/dL (11.0-16.0); LYMPH # 2.2 K/uL (1.0-4.3); LYMPH % 28.1 % (20.0-40.0); MEAN CELL VOLUME 87.5 fL (81.0-99.0); MEAN CORPUSCULAR HEMOGLOBIN 29.4 pg (27.0-31.0); MEAN CORPUSCULAR HGB CONC 33.6 g/dL (33.0-37.0); MEAN PLATELET VOLUME 7.8 fL (7.2-11.7); MONO # 0.7 K/uL (0.0-0.8); MONO % 8.8 % (0.0-10.0); NEUT # 4.3 K/uL (1.8-7.0); NEUT % 55.2 % (50.0-75.0); RBC 4.35 Mil/uL (3.80-5.20); RED CELL DISTRIBUTION WIDTH 13.2 % (11.5-14.5); WHITE BLOOD COUNT 7.7 K/uL (4.8-10.8)
[2018-01-24 07:37] LABS: ALB/GLOB RATIO 1.2 (1.0-2.1); ALBUMIN 3.7 g/dL (3.5-5.0); ALT/SGPT 38 U/L (9-52); AST/SGOT 36 U/L (14-36); BLOOD UREA NITROGEN 10 mg/dL (7-17); CALCIUM 8.7 mg/dl (8.6-10.4); GFR AFRICAN-AMERICAN > 60; GFR NON-AFRICAN AMERICAN > 60
--- NOTE | 2018-01-24 10:07 | CP.PCM.PN ---
Subjective - Date & Time of Evaluation Date of Evaluation: 01/24/18 Time of Evaluation: 10:07 Objective - Vital Signs/Intake and Output Vital Signs (last 24 hours): Temp Pulse Resp BP Pulse Ox 98.4 F 73 20 119/77 95 01/24/18 08:00 01/24/18 08:00 01/24/18 08:00 01/24/18 08:00 01/24/18 08:00 Intake and Output: 01/24/18 01/24/18 06:59 18:59 Intake Total 2340 Balance 2340 - Medications Medications: Current Medications Acetaminophen (Tylenol 325mg Tab) 650 mg PO Q6 PRN PRN Reason: Fever >100.4 F Last Admin: 01/21/18 21:46 Dose: 650 mg Enoxaparin Sodium (Lovenox) 40 mg SC DAILY [facility] Last Admin: 01/23/18 09:07 Dose: 40 mg Sodium Chloride (Sodium Chloride 0.9%) 1,000 mls @ 100 mls/hr IV .Q10H [facility] Last Admin: 01/24/18 00:45 Dose: Not Given Meropenem 500 mg/ Sodium (Chloride) 100 mls @ 100 mls/hr IVPB Q6 [facility] PRN Reason: Protocol Last Admin: 01/24/18 05:33 Dose: 100 mls/hr Losartan Potassium (Cozaar) 100 mg PO DAILY [facility] Last Admin: 01/23/18 09:08 Dose: 100 mg Rosuvastatin Calcium (Crestor) 20 mg PO HS [facility] Last Admin: 01/23/18 21:03 Dose: 20 mg - Labs Labs: 01/24/18 07:00 01/24/18 07:00
[2018-01-24] MEDS: Enoxaparin 40 mg Syringe SC SCH (10:34)
--- NOTE | 2018-01-24 12:33 | CP.PCM.PN ---
Subjective - Date & Time of Evaluation Date of Evaluation: 01/24/18 Time of Evaluation: 08:00 - Subjective Subjective: afeb on merrem for esbl pyelo Objective - Vital Signs/Intake and Output Vital Signs (last 24 hours): Temp Pulse Resp BP Pulse Ox 98.4 F 73 20 119/77 95 01/24/18 08:00 01/24/18 08:00 01/24/18 08:00 01/24/18 08:00 01/24/18 08:00 Intake and Output: 01/24/18 01/24/18 06:59 18:59 Intake Total 2340 Balance 2340 - Medications Medications: Current Medications Acetaminophen (Tylenol 325mg Tab) 650 mg PO Q6 PRN PRN Reason: Fever >100.4 F Last Admin: 01/21/18 21:46 Dose: 650 mg Enoxaparin Sodium (Lovenox) 40 mg SC DAILY [facility] Last Admin: 01/24/18 10:34 Dose: 40 mg Sodium Chloride (Sodium Chloride 0.9%) 1,000 mls @ 100 mls/hr IV .Q10H [facility] Last Admin: 01/24/18 00:45 Dose: Not Given Meropenem 500 mg/ Sodium (Chloride) 100 mls @ 100 mls/hr IVPB Q6 [facility] PRN Reason: Protocol Last Admin: 01/24/18 05:33 Dose: 100 mls/hr Losartan Potassium (Cozaar) 100 mg PO DAILY [facility] Last Admin: 01/24/18 10:33 Dose: 100 mg Rosuvastatin Calcium (Crestor) 20 mg PO HS [facility] Last Admin: 01/23/18 21:03 Dose: 20 mg - Labs Labs: 01/24/18 07:00 01/24/18 07:00 - Constitutional Appears: Well - Head Exam Head Exam: ATRAUMATIC, NORMAL INSPECTION, NORMOCEPHALIC - Eye Exam Eye Exam: EOMI, Normal appearance, PERRL Pupil Exam: NORMAL ACCOMODATION, PERRL - ENT Exam ENT Exam: Mucous Membranes Moist, Normal Exam - Neck Exam Neck Exam: Full ROM, Normal Inspection. absent: Lymphadenopathy - Respiratory Exam Respiratory Exam: Clear to Ausculation Bilateral, NORMAL BREATHING PATTERN - Cardiovascular Exam Cardiovascular Exam: REGULAR RHYTHM, +S1, +S2. absent: Murmur - GI/Abdominal Exam GI & Abdominal Exam: Soft, Normal Bowel Sounds. absent: Tenderness - Rectal Exam Rectal Exam: NORMAL INSPECTION - Exam Exam: Circumcision, NORMAL INSPECTION - Extremities Exam Extremities Exam: Full ROM, Normal Capillary Refill, Normal Inspection. absent : Joint Swelling, Pedal Edema - Back Exam Back Exam: NORMAL INSPECTION. absent: CVA tenderness (L), CVA tenderness (R) - Neurological Exam Neurological Exam: Alert, Awake, CN II-XII Intact, Normal Gait, Oriented x3 - Psychiatric Exam Psychiatric exam: Normal Affect, Normal Mood - Skin Skin Exam: Dry, Intact, Normal Color, Warm Assessment and Plan (1) Pyelonephritis Status: Acute (2) Abdominal pain Status: Acute (3) Acute urinary tract infection Status: Acute (4) Bronchitis Status: Acute
--- NOTE | 2018-01-24 14:37 | RAD ---
Date of service: 01/24/2018 HISTORY: PICC Insertion COMPARISON: Chest radiograph dated 01/18/2018. FINDINGS: LUNGS: Left basilar and midlung atelectasis. PLEURA: Small left pleural effusion. No pneumothorax apparent. CARDIOVASCULAR: Normal. OSSEOUS STRUCTURES: No significant abnormalities. VISUALIZED UPPER ABDOMEN: Normal. OTHER FINDINGS: Right upper extremity PICC with catheter tip in the SVC. IMPRESSION: Right upper extremity PICC in satisfactory position. Small left pleural effusion.
[2018-01-24 15:58] VITALS: BP 129/71; PULSE 71; TEMP 98; O2SAT 97
--- NOTE | 2018-01-24 16:08 | CP.PCM.PN ---
Subjective - Date & Time of Evaluation Date of Evaluation: 01/24/18 Time of Evaluation: 16:07 - Subjective Subjective: PATIENT WAS ADMITTED FOR PYELO AAOX3/ DENIES CHEST PAIN OR SOB Objective - Vital Signs/Intake and Output Vital Signs (last 24 hours): Temp Pulse Resp BP Pulse Ox 98.0 F 71 20 129/71 97 01/24/18 15:57 01/24/18 15:57 01/24/18 15:57 01/24/18 15:57 01/24/18 15:57 Intake and Output: 01/24/18 01/24/18 06:59 18:59 Intake Total 2340 900 Balance 2340 900 - Medications Medications: Current Medications Acetaminophen (Tylenol 325mg Tab) 650 mg PO Q6 PRN PRN Reason: Fever >100.4 F Last Admin: 01/21/18 21:46 Dose: 650 mg Enoxaparin Sodium (Lovenox) 40 mg SC DAILY [facility] Last Admin: 01/24/18 10:34 Dose: 40 mg Sodium Chloride (Sodium Chloride 0.9%) 1,000 mls @ 100 mls/hr IV .Q10H [facility] Last Admin: 01/24/18 10:45 Dose: 100 mls/hr Meropenem 500 mg/ Sodium (Chloride) 100 mls @ 100 mls/hr IVPB Q6 [facility] PRN Reason: Protocol Last Admin: 01/24/18 13:20 Dose: 100 mls/hr Losartan Potassium (Cozaar) 100 mg PO DAILY [facility] Last Admin: 01/24/18 10:33 Dose: 100 mg Rosuvastatin Calcium (Crestor) 20 mg PO HS [facility] Last Admin: 01/23/18 21:03 Dose: 20 mg - Labs Labs: 01/24/18 07:00 01/24/18 07:00 Assessment and Plan - Assessment and Plan (Free Text) Assessment: PATIENT SEEN AND EXAMINED AT THE BEDSIDE LUNG SOUND CLEAR PICC LINE IN PLACE/ F/U CHEST XRAY CONFIRM PLACEMENT PLACE UNDER DR S[place] [facility] [place]CALL FOR ADMITTING ORDER CONTINUE ALL YOUR HOME MEDICATION NEW PRESCRIPTION GIVEN MERREM 500 MG IVPB FOR 10 DAYS [facility] TOLERATED PICC LINE CARE PER FACILITY PROTOCOL CALL DR SEXTON FOR FURTHER ORDER
== END 2018-01-24 17:45 | DRG 690 ==
LOC: C.ER 08:07 → C.9E 12:06 → C.5S 13:39
PROVIDERS: ADMIT Internal Medicine; ATTEND Internal Medicine
PROC: 02HV33Z Insertion of Infusion Device into Superior Vena Cava, Percutaneous Approach (ICD-10-PCS; principal; 2018-01-24)
PROC: B548ZZA Ultrasonography of Superior Vena Cava, Guidance (ICD-10-PCS; 2018-01-24)
DX: N10 Acute pyelonephritis (principal); B96.20 Unspecified Escherichia coli [E. coli] as the cause of diseases classified elsewhere; Z16.12 Extended spectrum beta lactamase (ESBL) resistance; J20.9 Acute bronchitis, unspecified; N20.0 Calculus of kidney; K21.9 Gastro-esophageal reflux disease without esophagitis; I10 Essential (primary) hypertension; E78.5 Hyperlipidemia, unspecified; E78.00 Pure hypercholesterolemia, unspecified; Z90.49 Acquired absence of other specified parts of digestive tract; Z87.891 Personal history of nicotine dependence

== ENCOUNTER 2018-02-06 17:13 | Emergency (ER) | payer MEDICARE ==
[2018-02-06 17:14] VITALS: BMI 28.7
[2018-02-06 17:22] VITALS: BP 106/64; PULSE 82; TEMP 98.3; O2SAT 98
--- NOTE | 2018-02-06 17:30 | C.PDOC ---
History Of Present Illness 72-year-old female, presents to the emergency department with complaints of back pain. Patient states she was seen here and admitted for pyelo in the beginning of this month. Notes she was also admitted at [facility] for gall bladder problem, discharged a few days ago. Now patient is complaining of low back pain radiating down her posterior leg. She denies any abdominal pain, nausea/vomiting, fever, chest pain, shortness of breath, or any other associated symptoms. No other complaints at this time. Time Seen by Provider: 02/06/18 17:26 Chief Complaint (Nursing): Back Pain History Per: Patient History/Exam Limitations: no limitations Current Symptoms Are (Timing): Still Present Past Medical History Reviewed: Historical Data, Nursing Documentation, Vital Signs Vital Signs: Last Vital Signs Temp 98.3 F 02/06/18 17:17 Pulse 82 02/06/18 17:17 Resp 20 02/06/18 19:22 BP 106/64 02/06/18 17:17 Pulse Ox 98 02/06/18 20:23 - Medical History PMH: Diverticulitis, HTN, Hypercholesterolemia Surgical History: Appendectomy, Back Surgery, Cholecystectomy - [facility] Procedures INSERTION OF INFUSION DEV INTO SUP VENA CAVA, PERC APPROACH (01/18/18) OTHER SKIN & SUBQ I D (10/30/14) ULTRASONOGRAPHY OF SUPERIOR VENA CAVA, GUIDANCE (01/18/18) Family History: States: No Known Family Hx - Social History Hx Tobacco Use: Yes Hx Alcohol Use: No Hx Substance Use: No - Immunization History Hx Tetanus Toxoid Vaccination: No Hx Influenza Vaccination: No Hx Pneumococcal Vaccination: No Review Of Systems Constitutional: Negative for: Fever, Chills Cardiovascular: Negative for: Chest Pain, Palpitations Respiratory: Negative for: Shortness of Breath Musculoskeletal: Positive for: Back Pain, Leg Pain Neurological: Negative for: Weakness, Numbness, Headache, Dizziness Physical Exam - Physical Exam Appears: Non-toxic, No Acute Distress Skin: Normal Color, Warm, Dry, No Rash Head: Atraumatic, Normacephalic Eye(s): bilateral: Normal Inspection Nose: Normal Oral Mucosa: Moist Lips: Normal Appearing Neck: Normal ROM Chest: Symmetrical Cardiovascular: Rhythm Regular, No Murmur Respiratory: Normal Breath Sounds, No Accessory Muscle Use Back: Paraspinal Tenderness Extremity: Normal ROM, Calf Tenderness, No Deformity, No Swelling Neurological/Psych: Oriented x3, Normal Speech ED Course And Treatment O2 Sat by Pulse Oximetry: 98 (RA) Pulse Ox Interpretation: Normal - Other Rad LS spine xray X-Ray: Viewed By Me, Read By Radiologist Interpretation: Accession No. : [id number]. Patient Name / ID : GEORGE Lucas / [id number]. Exam Date : 02/06/2018 17:46:22 ( Approved ). Study Comment : Sex / Age : F / 72Y. Creator : Joslyn Seth MD. Dictator : Joslyn Seth MD. Medical Safety Director : Caramel Cutter Helper : Joslyn Seth MD. Approver2 : Report Date : 02/06/2018 18:06:46. My Comment : . Date of service: 02/06/2018. PROCEDURE: Radiographs of the Lumbar Spine. HISTORY: back pain. COMPARISON: Comparison is made to the previous CT of the abdomen and pelvis dated 01/20/2018. FINDINGS: BONES: Moderate degenerative changes are again noted associated with large osteophyte formation. Thick reticular densities noted at L4 vertebral body suggestive of benign hemangioma. DISC SPACES: Multilevel degenerative changes and narrowing of the intervertebral disc spaces noted more prominent at L4-L5 and L5-S1. OTHER FINDINGS: None. IMPRESSION: Moderate degenerative changes. L4 benign hemangioma. Medical Decision Making Medical Decision Making: Plan: * D-Dimer - negtive * XR Spine- DJD * Urine Culture - pending * UA- similar to the lst UA on discharge * Reassess and Disposition - f/u with PMD, follow result of urinary culture Disposition - Disposition Referrals: Steve Gallagher MD [Non-Staff] - Disposition: HOME/ ROUTINE Disposition Time: 19:13 Condition: STABLE Additional Instructions: Follow up with your PMD within 1-2 days. Return to ED if feel worse. Prescriptions: Lidocaine 5% [Lidoderm] 1 patch TP DAILY #30 patch Gabapentin [Neurontin] 300 mg PO QPM #20 cap traMADol/Acetaminophen [Ultracet 325 MG-37.5 MG] 1 - 2 tab PO Q6 PRN #30 tab PRN Reason: Pain Instructions: Radiculopathy Forms: [email or web address] [facility] (Kiswahili) Print Language: ROMANSH - Clinical Impression Clinical Impression: Lumbar radiculopathy - Scribe Statement The provider has reviewed the documentation as recorded by the Scribe (Panfilo Sutton) All medical record entries made by the Scribe were at my direction and personally dictated by me. I have reviewed the chart and agree that the record accurately reflects my personal performance of the history, physical exam, medical decision making, and the department course for this patient. I have also personally directed, reviewed, and agree with the discharge instructions and disposition.
--- NOTE | 2018-02-06 18:08 | RAD ---
Date of service: 02/06/2018 PROCEDURE: Radiographs of the Lumbar Spine. HISTORY: back pain COMPARISON: Comparison is made to the previous CT of the abdomen and pelvis dated 01/20/2018 FINDINGS: BONES: Moderate degenerative changes are again noted associated with large osteophyte formation. Thick reticular densities noted at L4 vertebral body suggestive of benign hemangioma. DISC SPACES: Multilevel degenerative changes and narrowing of the intervertebral disc spaces noted more prominent at L4-L5 and L5-S1. OTHER FINDINGS: None. IMPRESSION: Moderate degenerative changes. L4 benign hemangioma.
[2018-02-06 18:36] LABS: SQUAMOUS EPITHIAL 4 /hpf (0-5); URINE BILIRUBIN 1+ (NEGATIVE); URINE BLOOD 1+ (NEGATIVE); URINE CLARITY Hazy (Clear); URINE GLUCOSE (UA) NORMAL (Normal); URINE LEUKOCYTE ESTERASE TRACE Leu/uL (Negative); URINE PROTEIN 2+ mg/dL (NEGATIVE)
[2018-02-06 18:37] LABS: URINE COLOR YELLOW (YELLOW)
[2018-02-06 19:23] VITALS: RESP 20
== END 2018-02-06 19:22 | disposition home or self-care (01) ==
LOC: C.ER 17:13
DX: M54.16 Radiculopathy, lumbar region (principal)

== ENCOUNTER 2018-08-18 10:35 | Emergency (ER) | payer MEDICARE ==
[2018-08-18 10:35] VITALS: BMI 28.7
[2018-08-18 10:48] VITALS: TEMP 98.1
[2018-08-18 11:59] VITALS: BP 133/85; PULSE 71; RESP 18; O2SAT 97
--- NOTE | 2018-08-18 15:07 | C.PDOC ---
History Of Present Illness 73 y/o female presents to the ER for evaluation of abscess to the back which has been present for the past 4-5 days. Patient states that she history of similar symptoms. Denies having trauma, fever, and chills. Chief Complaint (Nursing): Abnormal Skin Integrity History Per: Patient History/Exam Limitations: no limitations Onset/Duration Of Symptoms: Days Current Symptoms Are (Timing): Still Present Severity: Moderate Past Medical History Reviewed: Historical Data, Nursing Documentation, Vital Signs Vital Signs: Last Vital Signs Temp 98.1 F 08/18/18 11:58 Pulse 71 08/18/18 11:58 Resp 18 08/18/18 11:58 BP 133/85 08/18/18 11:58 Pulse Ox 97 08/18/18 11:58 - Medical History PMH: Diverticulitis, HTN, Hypercholesterolemia Surgical History: Appendectomy, Back Surgery, Cholecystectomy - [facility] Procedures INSERTION OF INFUSION DEV INTO SUP VENA CAVA, PERC APPROACH (01/18/18) OTHER SKIN & SUBQ I D (10/30/14) ULTRASONOGRAPHY OF SUPERIOR VENA CAVA, GUIDANCE (01/18/18) Family History: States: No Known Family Hx - Social History Hx Tobacco Use: Yes Hx Alcohol Use: No Hx Substance Use: No - Immunization History Hx Tetanus Toxoid Vaccination: No Hx Influenza Vaccination: No Hx Pneumococcal Vaccination: No Review Of Systems Except As Marked, All Systems Reviewed And Found Negative. Constitutional: Negative for: Fever, Chills Skin: Positive for: Other (back abscess) Physical Exam - Physical Exam Appears: Non-toxic, No Acute Distress Skin: Normal Color, Warm, Dry, Other (1 cm fluctuant abscess to upper back) Head: Atraumatic, Normacephalic Eye(s): bilateral: Normal Inspection Nose: Normal Oral Mucosa: Moist Neck: Supple Chest: Symmetrical Cardiovascular: Rhythm Regular Respiratory: Normal Breath Sounds, No Rales, No Rhonchi, No Wheezing Neurological/Psych: Oriented x3, Normal Speech ED Course And Treatment O2 Sat by Pulse Oximetry: 97 (RA) Pulse Ox Interpretation: Normal - Incision & Drainage Of Abscess Prep Used: Sterile Water, Betadine Procedure: Incised W/Scalpel Blade#: (11), Drained Pus, Irrigated Cavity W/Saline, Probed To Break Up Loculations, Packed W/Gauze, Cultures Obtained And Sent To Lab Medical Decision Making Medical Decision Making: I&D performed. Patient tolerated well. Patient has been discharged and instructed to return to ER in 2 days for packing removal. Disposition - Disposition Referrals: Bibi Solano, [Non-Staff] - Disposition: HOME/ ROUTINE Disposition Time: 11:45 Condition: GOOD Additional Instructions: MARCELA VAZQUEZ, thank you for letting us take care of you today. The emergency medical care you received today was directed at your acute symptoms. If you were prescribed any medication, please fill it and take as directed. It may take several days for your symptoms to resolve. Return to the Emergency Department if your symptoms worsen, do not improve, or if you have any other problems. Please contact your doctor or call one of the physicians/clinics you have been referred to that are listed on the Patient Visit Information form that is included in your discharge packet. Bring any paperwork you were given at discharge with you along with any medications you are taking to your follow up visit. Our treatment cannot replace ongoing medical care by a primary care provider outside of the emergency department. Thank you for allowing the [facility] team to be part of your care today. Return to the emergency room in 2 days to have the packing removed. Prescriptions: Cephalexin [cephalexin] 500 mg PO Q6 #28 cap Instructions: Skin Abscess Forms: [employer] (Gabonese) - Clinical Impression Clinical Impression: Abscess - Scribe Statement The provider has reviewed the documentation as recorded by the Marty Nick Provider Attestation: All medical record entries made by the Polaibe were at my direction and personally dictated by me. I have reviewed the chart and agree that the record accurately reflects my personal performance of the history, physical exam, medical decision making, and the department course for this patient. I have also personally directed, reviewed, and agree with the discharge instructions and disposition.
== END 2018-08-18 11:59 | disposition home or self-care (01) ==
LOC: C.ER 10:35
DX: L02.212 Cutaneous abscess of back [any part, except buttock and flank] (principal)